=== PATIENT | male | born 1980 | race Caucasian/White ===

== ENCOUNTER 2016-07-12 15:13 | Emergency (ER) | payer BC ==
[~2016-07-12] VITALS: Ht 185.4 cm; Wt 99.2 kg
[~2016-07-12 15:13] MED LIST: CLR10 PO; FEXO3TAB PO; IBUP-103 PO
[2016-07-12 15:50] VITALS: TEMP 36.3; Ht 185.4 cm; Wt 99.2 kg
[2016-07-12] MEDS ORDERED: SODIUM CHLORIDE 0.9% 1000ML 1,000 ML IV STA (16:14)
[2016-07-12] MEDS ORDERED: DiphenhydrAMINE HCL 50 MG/ML VIAL IV STA (16:14)
[2016-07-12] MEDS ORDERED: KETOROLAC TROMETHAMINE 30 MG/ML VIAL IV STA (16:14)
[2016-07-12] MEDS ORDERED: FENTANYL CITRATE INJ 50 MCG/1 ML 2 ML VIAL IV ONE (16:15)
--- NOTE | 2016-07-12 16:50 | DIAGNOSTIC IMAGING REPORT ---
HEAD CT NONCONTRAST CT DOSE: 614.27 mGy.cm HISTORY: Mental status change Evaluate for hemorrhage or pathology TECHNIQUE: Multiaxial CT images of the head were performed without the use of intravenous contrast. Comparison: 03/29/2015 Findings: The paranasal sinuses and mastoid air cells are clear. Stable postoperative changes to the frontal facial region.. The ventricles and sulci are within normal limits. There is no mass, hematoma, midline shift, or acute infarct. Impression: No acute intracranial abnormality. Electronically signed by: Brandt Linares M.D. 07/12/2016 4:49 PM Dictated Date/Time: 07/12/2016 4:48 PM
[2016-07-12 16:59] LABS: BASO % 0.4 %; BASO ABS # 0.02 K/uL (0-0.2); COMPLETE YES; EOS % 8.3 %; HEMATOCRIT 43.8 % (42-52); IG% 0.4 %; LYMPH % 26.8 %; LYMPH ABS # 1.45 K/uL (1.2-3.4); MEAN CELL VOLUME 89.9 fL (80-100); MEAN CORPUSCULAR HGB CONC 35.6 g/dl (32-36); MEAN PLATELET VOLUME 11.6 fL (7.4-10.4); MONO % 7.9 %; NEUT % 56.2 %; PLATELET COUNT 126 K/uL (130-400); RED BLOOD COUNT 4.87 M/uL (4.7-6.1); WHITE BLOOD COUNT 5.41 K/uL (4.8-10.8)
[2016-07-12 17:21] LABS: BUN/CREATININE RATIO 13.9 (10-20); CALCIUM 9.3 mg/dl (8.5-10.1); CREATININE 1.5 mg/dl (0.60-1.40); POTASSIUM 3.6 mmol/L (3.5-5.1)
[2016-07-12] MEDS ORDERED: FENTANYL CITRATE INJ 50 MCG/1 ML 2 ML VIAL IV STA (17:32)
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
[2016-07-12 17:40] VITALS: BP 119/84; PULSE 68; O2SAT 97
== END 2016-07-12 18:00 | disposition home or self-care (01) ==
LOC: C.EDB 15:16 → C.EDC 18:00
DX: E86.0 Dehydration (principal); R51 Headache; I10 Essential (primary) hypertension; I48.91 Unspecified atrial fibrillation; G47.33 Obstructive sleep apnea (adult) (pediatric); K21.9 Gastro-esophageal reflux disease without esophagitis; F32.9 Major depressive disorder, single episode, unspecified; F41.1 Generalized anxiety disorder; F17.200 Nicotine dependence, unspecified, uncomplicated; Z90.5 Acquired absence of kidney; Z85.47 Personal history of malignant neoplasm of testis; Z79.899 Other long term (current) drug therapy; Z88.5 Allergy status to narcotic agent; Z80.9 Family history of malignant neoplasm, unspecified; Z83.79 Family history of other diseases of the digestive system; Z82.49 Family history of ischemic heart disease and other diseases of the circulatory system; Z82.0 Family history of epilepsy and other diseases of the nervous system

== ENCOUNTER 2016-07-19 17:07 | Emergency (ER) | payer BC ==
[~2016-07-19] VITALS: Ht 185.4 cm; Wt 101.2 kg
[~2016-07-19 17:07] MED LIST changes: -FEXO3TAB PO
[2016-07-19 17:10] VITALS: Ht 185.4 cm; Wt 101.2 kg
[2016-07-19 18:09] VITALS: TEMP 36.5
[2016-07-19 19:15] LABS: BASO % 0.4 %; BASO ABS # 0.03 K/uL (0-0.2); COMPLETE YES; HEMATOCRIT 43.5 % (42-52); IG% 0.8 %; LYMPH % 30.3 %; LYMPH ABS # 2.16 K/uL (1.2-3.4); MEAN CELL VOLUME 91.2 fL (80-100); MEAN CORPUSCULAR HEMOGLOBIN 31.9 pg (25-34); MEAN CORPUSCULAR HGB CONC 34.9 g/dl (32-36); MEAN PLATELET VOLUME 11.1 fL (7.4-10.4); MONO % 3.8 %; NEUT % 57.7 %; PLATELET COUNT 148 K/uL (130-400); RED BLOOD COUNT 4.77 M/uL (4.7-6.1); WHITE BLOOD COUNT 7.12 K/uL (4.8-10.8)
[2016-07-19 19:22] VITALS: O2SAT 98
[2016-07-19] MEDS ORDERED: KETOROLAC TROMETHAMINE 30 MG/ML VIAL IV STA (19:28)
[2016-07-19] MEDS ORDERED: PROCHLORPERAZINE 5 MG/ML 2 ML VIAL IV STA (19:28)
[2016-07-19] MEDS ORDERED: DiphenhydrAMINE HCL 50 MG/ML VIAL IV STA (19:28)
[2016-07-19] MEDS ORDERED: SODIUM CHLORIDE 0.9% 1000ML 1,000 ML IV STA (19:28)
--- NOTE | 2016-07-19 19:34 | DIAGNOSTIC IMAGING REPORT ---
CHEST ONE VIEW PORTABLE CLINICAL HISTORY: Severe hypertension. COMPARISON STUDY: Chest radiograph and chest CT March 29, 2015. FINDINGS: Lung volumes are mildly diminished. This is unchanged. There is no pneumothorax or pleural effusion. Cardiac size is normal. Mediastinal contours are stable. There is no evidence of pulmonary edema. There is no consolidation. Minimal right basilar opacity favors atelectasis. IMPRESSION: No acute cardiopulmonary findings. Electronically signed by: Gordo Ramirez M.D. 07/19/2016 7:33 PM Dictated Date/Time: 07/19/2016 7:32 PM
[2016-07-19 19:45] LABS: PROTHROMBIN TIME (PATIENT) 10.7 SECONDS (9.0-12.0)
[2016-07-19 20:07] LABS: ALKALINE PHOSPHATASE 95 U/L (45-117); ALT/SGPT 46 U/L (12-78); BLOOD UREA NITROGEN 14 mg/dl (7-18); BUN/CREATININE RATIO 9.6 (10-20); CALCIUM 8.8 mg/dl (8.5-10.1); CARBON DIOXIDE 28 mmol/L (21-32); CHLORIDE 105 mmol/L (98-107); GLUCOSE 131 mg/dl (70-99); SODIUM 140 mmol/L (136-145)
[2016-07-19 20:33] LABS: AST/SGOT 20 U/L (15-37)
[2016-07-19] MEDS ORDERED: FENTANYL CITRATE INJ 50 MCG/1 ML 2 ML VIAL IV STA ×2 (20:52→23:25)
[2016-07-19 21:52] LABS: URINE APPEARANCE CLEAR (CLEAR); URINE BILIRUBIN NEG (NEG); URINE COLOR YELLOW; URINE NITRITE NEG (NEG); URINE SPECIFIC GRAVITY 1.017 (1.000-1.030); UROBILINOGEN NEG (NEG)
--- NOTE | 2016-07-19 21:53 | DIAGNOSTIC IMAGING REPORT ---
MRI OF THE BRAIN WITHOUT CONTRAST CLINICAL HISTORY: Right frontal headache. COMPARISON STUDY: Head CTs March 29, 2015 and July 12, [address] October 10, 2013. TECHNIQUE: Utilizing a 1.5 Wilda magnet and dedicated coil, multiplanar, multiecho imaging of the brain was performed without IV contrast. FINDINGS: There are no areas of restricted diffusion. No acute intracranial hemorrhage, midline shift or mass effect is present. Ventricular system is normal. Basilar cisterns are patent. There are no extra-axial collections. Flow-voids for the major intracranial vessels are present. No intracranial masses are identified on this examination. Findings consistent with a previous facial internal fixation are noted, better depicted on recent CT. As before, the right frontal sinus is opacified and contains complex material. This represents a chronic finding. There is a possible defect within the right orbital roof with a small amount of material protruding into the superior aspect of the right orbit, slightly displacing the superior rectus muscle. This may be chronic. The defect is suboptimally assessed on this exam but measures approximately 1.8 x 1.5 cm. No intracranial extension is identified on this exam. Minimal signal abnormality within the anterior medial aspects of both frontal lobes is likely posttraumatic and is chronic. IMPRESSION: 1. No acute intracranial findings. 2. Chronic right frontal sinus opacification, similar to previous CT exams. Postsurgical findings consistent with a previous facial reconstruction. 3. Apparent protrusion of right frontal sinus material into the superior aspect of the right orbit with mild mass effect upon the superior rectus muscle. The findings are suboptimally assessed on this exam but raise the possibility of a defect within the right orbital roof. The findings are likely chronic. No intracranial extension identified. Electronically signed by: Gordo Ramirez M.D. 07/19/2016 9:52 PM Dictated Date/Time: 07/19/2016 9:39 PM
[2016-07-19 22:11] LABS: MANUAL MICROSCOPIC REQUIRED? NO; REVIEW REQ? NO
[2016-07-19 23:27] VITALS: BP 136/98; PULSE 97; O2SAT 98
--- NOTE | 2016-07-20 02:54 | EMERGENCY ROOM VISIT NOTE ---
History Report prepared by Perry: Jag Pantoja Under the Supervision of: Dr. Akbar Little M.D. First contact with patient: 18:58 Chief Complaint: HEADACHE Stated Complaint: HIGH BP, BLURRY VISION, PRESSURE IN R SIDE OF HEAD History of Present Illness The patient is a 36 year old male who presents to the Emergency Room with complaints of a frontal, right sided headache that began 7 days ago. The pain radiates back toward the back of his head as well. The patient rates his current pain an 8/10 in severity. The patient was seen in the ED a couple of days ago for the same problem. His headache has persisted since then. He states that it is very intermittent throughout the day. He states that it does not feel like a headache, and that it feels more like a "burning pressure." The patient is also experiencing nausea when the headache is present. Per the , he has been having sporadic "seizure-like" movements that are almost twitch- like. He was alert during this time. This began today. He also turns erythematous to the face when his blood pressure is elevated. He does not have a history of migraines. He says that his mother does have a history of them. The patient has a past medical history of Hypertension. He has had a problem with his blood pressure for about 8 years. He states that they increased his Metoprolol dosage yesterday from 1 50 mg a day to 2 a day (at the same time). He has not missed any of his dosages. They state that his blood pressure has been "out of control." It has gone as high as 157/101. He states that he has right eye blurriness as well. He says that light or sound does not exacerbate his symptoms. He has an additional past medical history of testicular cancer, a unilateral nephrectomy, titanium plates in his head, and sleep apnea. Patient denies LOC, fevers, chills, neck pain/stiffness, thunder clap or sudden onset of headache, carbon monoxide exposure, ear problems/hearing loss, sinus congestion/recent infection, chest pain, breathing difficulties, vomiting, abdominal pain, urinary symptoms, numbness, weakness, lymphadenopathy, rash, or other complaints. Source of History: patient, spouse/significant other Onset: seven days ago Position: head Symptom Intensity: 8/10 Quality: pressure, burning Timing: intermittent Associated Symptoms: + nausea Note: The patient is experiencing facial erythema, right eye blurriness, and an involuntary shake. Review of Systems See HPI for pertinent positives and negatives. A total of ten systems were reviewed and were otherwise negative. Past Medical & Surgical Medical Problems: (1) Ascites (2) Atrial fibrillation (3) Depressive Disorder Nec (4) Esophageal Reflux (5) Generalized Anxiety Dis (6) History of nephrectomy, unilateral (7) Hypertension (8) Hypertension Nos (9) Mononeuritis Leg Nos (10) Obstructive Sleep Apnea (Adult) (Pediatric) (11) Testis cancer (12) Tobacco Use Disorder Surgical Problems: (1) History of nephrectomy (2) Lymphadenectomy (3) Paracentesis Family History Cancer Gallbladder disease Hypertension Lung disease Seizures Social History Smoking Status: Current Every Day Smoker Drug Use: heroin Marital Status: Housing Status: lives with family Occupation Status: employed Current/Historical Medications Scheduled Bupropion (Wellbutrin Sr), 100 MG PO BID Buspirone Hcl (Buspar), 15 MG PO BID Escitalopram Oxalate (Escitalopram Oxalate), 20 MG PO DAILY Loratadine (Claritin), 10 MG PO DAILY Metoprolol Succinate (Metoprolol Succinate ER), 100 MG PO DAILY Omeprazole (Prilosec), 40 MG PO DAILY Tadalafil (Cialis), 5 MG PO DAILY Scheduled PRN Ibuprofen Tab (Advil), 400 MG PO UD PRN for Pain Allergies Coded Allergies: Hydromorphone (Verified Allergy, Intermediate, HIVES, 07/12/16) Physical Exam Vital Signs Date Time Temp Pulse Resp B/P Pulse Ox O2 Delivery O2 Flow Rate FiO2 07/19/16 23:27 97 18 136/98 98 Room Air 07/19/16 22:41 64 18 132/89 95 Room Air 07/19/16 21:38 59 18 126/82 94 Room Air 07/19/16 20:12 61 07/19/16 19:59 60 18 159/104 07/19/16 19:24 79 18 159/96 98 Room Air 07/19/16 19:22 98 Room Air 07/19/16 18:09 36.5 79 18 129/91 96 Room Air 07/19/16 17:10 36.3 71 18 143/93 99 Room Air Physical Exam GENERAL: Awake, alert, well appearing, no distress HENT: Normocephalic, atraumatic. TM's normal. Oropharynx unremarkable. EYES: PERRL. EOMI. Normal conjunctiva. Sclera non-icteric. NECK: Supple. No nuchal rigidity. FROM. No JVD or bruit. RESPIRATORY: CTA CARDIAC: RRR. No murmur. ABDOMEN: Soft, non distended. No tenderness to palpation. No rebound or guarding. No masses. RECTAL: Deferred. MUSCULOSKELETAL: Unremarkable. No edema. No discoloration. Gross motor strength symmetric. NEURO: Cranial nerves 2-12 grossly intact. Normal sensorium. No sensory or motor deficits noted. Speech normal. No pronator drift. Normal rapid alternating movements. Normal heel to perez. SKIN: No rash or jaundice noted. LYMPH: No adenopathy. Medical Decision & Procedures ER Provider Diagnostic Interpretation: Radiology results are stated below per my review and radiologist interpretation: CHEST ONE VIEW PORTABLE CLINICAL HISTORY: Severe hypertension. COMPARISON STUDY: Chest radiograph and chest CT March 29, 2015. FINDINGS: Lung volumes are mildly diminished. This is unchanged. There is no pneumothorax or pleural effusion. Cardiac size is normal. Mediastinal contours are stable. There is no evidence of pulmonary edema. There is no consolidation. Minimal right basilar opacity favors atelectasis. IMPRESSION: No acute cardiopulmonary findings. Electronically signed by: Gordo Ramirez M.D. 07/19/2016 7:33 PM Dictated Date/Time: 07/19/2016 7:32 PM MRI OF THE BRAIN WITHOUT CONTRAST CLINICAL HISTORY: Right frontal headache. COMPARISON STUDY: Head CTs March 29, 2015 and July 12, [address] October 10, 2013. TECHNIQUE: Utilizing a 1.5 Wilda magnet and dedicated coil, multiplanar, multiecho imaging of the brain was performed without IV contrast. FINDINGS: There are no areas of restricted diffusion. No acute intracranial hemorrhage, midline shift or mass effect is present. Ventricular system is normal. Basilar cisterns are patent. There are no extra-axial collections. Flow-voids for the major intracranial vessels are present. No intracranial masses are identified on this examination. Findings consistent with a previous facial internal fixation are noted, better depicted on recent CT. As before, the right frontal sinus is opacified and contains complex material. This represents a chronic finding. There is a possible defect within the right orbital roof with a small amount of material protruding into the superior aspect of the right orbit, slightly displacing the superior rectus muscle. This may be chronic. The defect is suboptimally assessed on this exam but measures approximately 1.8 x 1.5 cm. No intracranial extension is identified on this exam. Minimal signal abnormality within the anterior medial aspects of both frontal lobes is likely posttraumatic and is chronic. IMPRESSION: 1. No acute intracranial findings. 2. Chronic right frontal sinus opacification, similar to previous CT exams. Postsurgical findings consistent with a previous facial reconstruction. 3. Apparent protrusion of right frontal sinus material into the superior aspect of the right orbit with mild mass effect upon the superior rectus muscle. The findings are suboptimally assessed on this exam but raise the possibility of a defect within the right orbital roof. The findings are likely chronic. No intracranial extension identified. Electronically signed by: Gordo Ramirez M.D. 07/19/2016 9:52 PM Dictated Date/Time: 07/19/2016 9:39 PM Laboratory Results 07/19/16 19:05 Red Blood Count 4.77, Mean Corpuscular Volume 91.2, Mean Corpuscular Hemoglobin 31.9, Mean Corpuscular Hemoglobin Concent 34.9, Mean Platelet Volume 11.1, Neutrophils (%) (Auto) 57.7, Lymphocytes (%) (Auto) 30.3, Monocytes (%) (Auto) 3.8, Eosinophils (%) (Auto) 7.0, Basophils (%) (Auto) 0.4, Neutrophils # (Auto) 4.10, Lymphocytes # (Auto) 2.16, Monocytes # (Auto) 0.27, Eosinophils # (Auto) 0.50, Basophils # (Auto) 0.03 07/19/16 19:05 Test 07/19/16 19:05 07/19/16 20:45 White Blood Count 7.12 K/uL (4.8-10.8) Red Blood Count 4.77 M/uL (4.7-6.1) Hemoglobin 15.2 g/dL (14.0-18.0) Hematocrit 43.5 % (42-52) Mean Corpuscular Volume 91.2 fL (80-100) Mean Corpuscular Hemoglobin 31.9 pg (25-34) Mean Corpuscular Hemoglobin Concent 34.9 g/dl (32-36) Platelet Count 148 K/uL (130-400) Mean Platelet Volume 11.1 fL (7.4-10.4) Neutrophils (%) (Auto) 57.7 % Lymphocytes (%) (Auto) 30.3 % Monocytes (%) (Auto) 3.8 % Eosinophils (%) (Auto) 7.0 % Basophils (%) (Auto) 0.4 % Neutrophils # (Auto) 4.10 K/uL (1.4-6.5) Lymphocytes # (Auto) 2.16 K/uL (1.2-3.4) Monocytes # (Auto) 0.27 K/uL (0.11-0.59) Eosinophils # (Auto) 0.50 K/uL (0-0.5) Basophils # (Auto) 0.03 K/uL (0-0.2) RDW Standard Deviation 43.7 fL (36.4-46.3) RDW Coefficient of Variation 13.3 % (11.5-14.5) Immature Granulocyte % (Auto) 0.8 % Immature Granulocyte # (Auto) 0.06 K/uL (0.00-0.02) Prothrombin Time 10.7 SECONDS (9.0-12.0) Prothromb Time International Ratio 1.0 (0.9-1.1) Activated Partial Thromboplast Time 26.1 SECONDS (21.0-31.0) Partial Thromboplastin Ratio 1.0 Anion Gap 7.0 mmol/L (3-11) Est Creatinine Clear Calc Drug Dose 85.1 ml/min Estimated GFR () 68.4 Estimated GFR (Non- 59.0 BUN/Creatinine Ratio 9.6 (10-20) Calcium Level 8.8 mg/dl (8.5-10.1) Total Bilirubin 0.3 mg/dl (0.2-1) Direct Bilirubin < 0.1 mg/dl (0-0.2) Aspartate Amino Transf (AST/SGOT) 20 U/L (15-37) Alanine Aminotransferase (ALT/SGPT) 46 U/L (12-78) Alkaline Phosphatase 95 U/L (45-117) Total Creatine Kinase 64 U/L (39-308) Creatine Kinase MB 1.2 ng/ml (0.5-3.6) Creatine Kinase MB Ratio (0-3.0) Troponin I < 0.015 ng/ml (0-0.045) Total Protein 7.4 gm/dl (6.4-8.2) Albumin 3.9 gm/dl (3.4-5.0) Lipase 310 U/L (73-393) Thyroid Stimulating Hormone (TSH) 3.000 uIu/ml (0.300-4.500) Urine Color YELLOW Urine Appearance CLEAR (CLEAR) Urine pH 6.0 (4.5-7.5) Urine Specific Hiko 1.017 (1.000-1.030) Urine Protein NEG (NEG) Urine Glucose (UA) NEG (NEG) Urine Ketones NEG (NEG) Urine Occult Blood NEG (NEG) Urine Nitrite NEG (NEG) Urine Bilirubin NEG (NEG) Urine Urobilinogen NEG (NEG) Urine Leukocyte Esterase NEG (NEG) Laboratory results reviewed by me Medications Administered Medications (Trade) Dose Ordered Sig/Abigail Route Start Time Stop Time Status Last Admin Dose Admin Sodium Chloride (Nss 1000ml) 1,000 ml @ 999 mls/hr Q1H1M STAT IV 07/19/16 19:28 07/19/16 20:28 DC 07/19/16 19:28 999 MLS/HR Diphenhydramine HCl (Benadryl Inj) 25 mg NOW STAT IV 07/19/16 19:28 07/19/16 19:30 DC 07/19/16 19:55 25 MG Prochlorperazine Edisylate (Compazine Inj) 10 mg NOW STAT IV 07/19/16 19:28 07/19/16 19:30 DC 07/19/16 19:55 10 MG Ketorolac Tromethamine (Toradol Inj) 10 mg NOW STAT IV 07/19/16 19:28 07/19/16 19:30 DC 07/19/16 19:55 10 MG Fentanyl Citrate (Fentanyl Inj) 100 mcg NOW STAT IV 07/19/16 20:52 07/19/16 20:53 DC 07/19/16 21:35 100 MCG Fentanyl Citrate (Fentanyl Inj) 50 mcg NOW STAT IV 07/19/16 23:25 07/19/16 23:26 DC 07/19/16 23:25 50 MCG ECG Indication: other (HTN) Rate (beats per minute): 67 Rhythm: normal sinus Findings: no acute ischemic change, no ectopy ED Course 1857: The patient was evaluated in room A10. A complete history and physical exam was performed. 1928: Toradol Inj 10 mg IV, Compazine Inj 10 mg IV, Benadryl Inj 25 mg IV, Sodium Chloride 1000 ml @ 999 mls/hr IV 2003: I spoke with Dr. Ramirez - Hospitalist, about the patient's metal in his head potentially altering the MRI image. They stated it should be fine. 2051: Fentanyl Citrate 100 mcg IV 2324: Fentanyl Inj 50 mg IV 2344: I reevaluated the patient. Discussed results and discharge instructions: He verbalized understanding and agreement. The patient is ready for discharge. Medical Decision Triage Nursing notes reviewed. The patient's presentation and history were concerning for headache and high blood pressure. Etiologies such as migraine, tumor, hypertensive emergency, labile hypertension, Headache, sinus thrombosis, temporal arteritis, sinusitis, CVA, ICH, SAH, infection, as well as others were entertained. The patient was evaluated. He was nonfocal examination. He had no eye findings. Fundi were normal. The patient's blood pressure was only mildly elevated in the grand scheme of things. He has recently had a his metoprolol increased. His described these jerking movements. The patient was never unresponsive with these. They only lasted a second or so and worse described mostly like a startle or twitch. The patient had a few twitches during the history and physical. They were very brief and lasted about a second. Physical examination was nonfocal and was able to complete all the required testing. His CBC and chemistry panel were unremarkable. ECG and cardiac markers negative. Urinalysis negative. The patient was treated with Compazine , Benadryl and Toradol. On reassessment he was feeling somewhat better but still had the pressure and discomfort. He noted good relief with the fentanyl he received previously. I did review his record in the [facility] and the patient states that he had a prescription for Percocet but was somewhat confused on the time as well as the amount prescribed. He was answering that he had received only 4 or 5 pills worth of medicine however I did discuss the query results showing that he received 30 tablets. He did have some difficulty explaining the difference and lasted as he was just confused about it. Medical record review indicates the patient has had issues with narcotics in the past. I gave my usual and customary discussion regarding this issue. Recent CT imaging was unremarkable. I discussed further imaging with MRI due to his abnormal appearance to his sinus and his right sided headache. He had no meningeal findings. The patient underwent MR imaging and this revealed chronic appearing like changes of the right-sided sinuses. Postsurgical changes noted on the skull. The brain was normal. The patient then desired discharge. He did notice pain was slightly increased after getting much better from the first dose of fentanyl. The patient was given a second 50 g dose. He did well with this. I discussed conservative management as an outpatient. This may be migraine like variant. His blood pressure was elevated but never in the range to consider hypertensive emergency. He the patient was doing well and I discussed referral to neurology. The patient also has the abnormality of the right sinuses and I discussed referral to ENT. If the patient worsens in any way or has recurrent symptoms she can come back to emergency department for evaluation. The patient was encouraged to follow up with his primary physician for blood pressure management. By the evaluation outlined above other emergent etiologies such as those listed in the differential, as well as others, were deemed relatively unlikely. The patient and significant other were informed about the findings as listed above. All questions were answered and they were pleased with the treatment. Return instructions were outlined and the patient was discharged in stable condition. The chart was completed utilizing [employer] Speech voice recognition software. Grammatical errors, random word insertions, pronoun errors, and incomplete sentences are an occasional consequence of this system due to software limitations, ambient noise, and hardware issues. Any formal questions or concerns about the content, text, or information contained within the body of this dictation should be directly addressed to the physician for clarification. Consults Time Called: 1999 Consulting Physician: Dr. Ramirez - Radiology Returned Call: 2003 I spoke with them about the patient's metal in his head potentially altering the MRI image. They stated it should be fine. Impression Primary Impression: Headache Scribe Attestation The scribe's documentation has been prepared under my direction and personally reviewed by me in its entirety. I confirm that the note above accurately reflects all work, treatment, procedures, and medical decision making performed by me. Departure Information Dispostion Home / Self-Care Referrals Sung Parmar (PCP) Marcel Major D.O. Schaefer, Kathleen A., M.D. Forms HOME CARE DOCUMENTATION FORM, IMPORTANT VISIT INFORMATION Patient Instructions My [facility] Additional Instructions HEADACHE INSTRUCTIONS: DO NOT drive, drink alcohol, operate machinery, or perform dangerous activities today. You were given medications in the ER that can affect your ability to safely function or operate a vehicle. Rest today in a quiet, peaceful, dark environment and get a full 8-10 hrs of sleep tonight. Avoid loud noises, smoke/smoking, alcohol, bright lights, stress, or physical exertion today to minimize the chance the headache may return. Continue current medications. Ibuprofen(Motrin, Advil) may be used for fever or pain. Use 600mg every six hours as needed. Take with food. Avoid using more than 2400mg in a 24 hour period. Do not use 2400mg per day for more than three consecutive days without physician direction. Prolonged inappropriate use can lead to stomach upset or ulcers. (AND/OR) Acetaminophen(Tylenol) may be used for fever or pain. Use 1000mg every six hours as needed. Avoid using more than 4000mg in a 24 hour period. Return to the ER for passing out, worsening headache, vision problems, neck stiffness/pain, fevers, vomiting, worsening of your condition, or as needed. Follow up with your primary physician tomorrow for a recheck of your current condition and blood pressure management. Follow-up with neurology, Dr. Anita Patel as discussed. Call the office tomorrow. Follow-up with ENT as discussed. The number is listed below under Dr. Lindsay. Call the office tomorrow.
== END 2016-07-19 23:53 | disposition home or self-care (01) ==
LOC: C.EDB 17:10 → C.EDA 23:53
DX: R51 Headache (principal); I10 Essential (primary) hypertension; I48.91 Unspecified atrial fibrillation; F32.9 Major depressive disorder, single episode, unspecified; K21.9 Gastro-esophageal reflux disease without esophagitis; G47.33 Obstructive sleep apnea (adult) (pediatric); F41.1 Generalized anxiety disorder; F17.200 Nicotine dependence, unspecified, uncomplicated; Z98.890 Other specified postprocedural states; Z79.899 Other long term (current) drug therapy; Z88.5 Allergy status to narcotic agent; Z80.9 Family history of malignant neoplasm, unspecified; Z83.79 Family history of other diseases of the digestive system; Z82.49 Family history of ischemic heart disease and other diseases of the circulatory system; Z82.0 Family history of epilepsy and other diseases of the nervous system

== ENCOUNTER → 2016-07-27 | Outpatient (CLI) | payer BC ==
[~2016-07-27] MED LIST changes: +ACET-1256 PO; +BUPR100T8 PO; +BUSP15TA70 PO; +DOCU100C31 PO; +GADAVIST IV PRN; +LORA24TA7 PO; +LXP/20 PO; +OMEP40CA41 PO; +OXYC-106 PO; +TADA5TAB11 PO; +TPRSR/50 PO
--- NOTE | 2016-07-27 08:12 | DIAGNOSTIC IMAGING REPORT ---
MR ANGIOGRAPHY OF THE [place] NO CONTRAST CLINICAL HISTORY: Subtle onset headaches, history of sinus surgery. Testicular carcinoma. COMPARISON STUDY: None. A 3-D [id number] MR angiographic sequence of the [place] was performed. Both the source and projection images were reviewed. There is no evidence of major intracranial branch occlusion. There is no evidence of intracranial stenosis. There are no lesions suspicious for aneurysm. Inflammatory changes are present within the paranasal sinuses with evidence of maxillary ethmoid and frontal sinus mucosal disease. IMPRESSION: 1. Inflammatory changes within the paranasal sinuses 2. Otherwise unremarkable MR angiography of the [place] Electronically signed by: Mykel Moreno M.D. 07/27/2016 8:11 AM Dictated Date/Time: 07/27/2016 8:08 AM
--- NOTE | 2016-07-27 08:26 | DIAGNOSTIC IMAGING REPORT ---
MRI OF THE BRAIN WITHOUT AND WITH IV CONTRAST CLINICAL HISTORY: Sudden onset headaches. Testicular carcinoma. COMPARISON STUDY: Noncontrast MRI the brain dated 07/19/2016 TECHNIQUE: MRI of the brain was performed from the vertex to the skull base utilizing various T1 and T2 weighted sequences. Following the IV administration of 10 mL of Gadavist contrast, additional enhanced images were obtained. FINDINGS: Sagittal T1, axial diffusion, proton density and T2 weighted axial, coronal FLAIR, and pre and post axial T1-weighted images were acquired. These were supplemented with post gadolinium coronal T1 weighted images. No intra or extra-axial mass lesions are visualized. Axial diffusion-weighted images reveal no evidence of acute or subacute infarction. There is no evidence of ventricular dilatation. Proton density T2-weighted and FLAIR images reveal a focus of increased T2 signal with within the right anterior frontal lobe, consistent with encephalomalacia. There are no abnormal flow voids. There is no evidence of pathologic enhancement. There is circumferential mucosal thickening within the left maxillary sinus. There is chronic opacification of the right frontal sinus. Coronal images suggest a defect within the right orbital roof. There is mild mass effect on the superior rectus muscle. There are postsurgical changes of a prior facial reconstruction. IMPRESSION: 1. No acute intracranial findings. 2. No evidence of metastatic disease 3. Stable right frontal lobe encephalomalacia 4. Persistent sinus disease with chronic opacification of the right frontal sinus. There is a suspected defect involving the right orbital roof with protrusion of right frontal sinus material into the superior aspect of the right orbit. There is mild mass effect on the right superior rectus. Electronically signed by: Mykel Moreno M.D. 07/27/2016 8:25 AM Dictated Date/Time: 07/27/2016 8:18 AM
--- NOTE | 2016-07-27 08:51 | DIAGNOSTIC IMAGING REPORT ---
ORBIT MRI WITH AND WITHOUT CONTRAST CLINICAL HISTORY: Sudden onset headache. History of sinus reconstruction. COMPARISON STUDY: Maxillofacial CT October 10, 2013, head CT March 29, 2015 and MRI of the brain July 19, 2016. TECHNIQUE: Utilizing a 1.5 Wilda magnet and dedicated coil, multiplanar, multiecho imaging of the orbits and the adjacent soft tissues was performed pre and postcontrast ministration. Injection of 10 cc of Gadavist IV was uneventful. The MRI of the brain will be reported separately. FINDINGS: Mild encephalomalacia within the anterior medial bilateral frontal lobes is likely posttraumatic and is chronic. This is unchanged. There is moderate mucosal thickening of the left maxillary sinus and mild mucosal thickening of the right maxillary sinus. There is chronic opacification of the right frontal sinus with nonenhancing T1 hyperintense material. This is unchanged since earlier exams. There is protrusion of this material into the superior aspect of the right orbit. This contacts the right superior rectus muscle. An apparent defect within the roof measures approximately 1.8 cm. By MRI, is difficult to determine whether the bone is intact. At a minimum, the bone is significantly thinned. This could reflect a mucocele. No enhancing component is identified. Postsurgical findings consistent with a previous facial reconstruction are noted. The MRI of the brain will be reported separately. The globes are intact. No additional orbital abnormalities are identified on this examination. IMPRESSION: 1. Chronic opacification of the right frontal sinus which is unchanged since prior exams. The right frontal sinus contains nonenhancing material which could reflect a mucocele. 2. Protrusion of right frontal contents into the superior aspect of the right orbit with a possible defect within the right orbital roof. By MRI, it is difficult to determine the integrity of the bone but the bone is at least thinned. The protruding material contacts the superior rectus muscle. 3. Findings consistent with a previous facial reconstruction. Electronically signed by: Gordo Ramirez M.D. 07/27/2016 8:49 AM Dictated Date/Time: 07/27/2016 8:24 AM
== END | disposition home or self-care (01) ==
LOC: C.MRI 06:37
PROVIDERS: ATTEND Psychiatry & Neurology Neurology
DX: R51 Headache (principal); G93.89 Other specified disorders of brain; J32.9 Chronic sinusitis, unspecified

== ENCOUNTER 2016-12-01 14:45 | Emergency (ER) | payer BC ==
[~2016-12-01] VITALS: Ht 185.4 cm; Wt 98.2 kg
[~2016-12-01 14:45] MED LIST changes: -ACET-1256 PO; -BUPR100T8 PO; -BUSP15TA70 PO; -DOCU100C31 PO; -GADAVIST IV PRN; -LORA24TA7 PO; -LXP/20 PO; -OMEP40CA41 PO; -OXYC-106 PO; -TADA5TAB11 PO; -TPRSR/50 PO
[2016-12-01 14:49] VITALS: TEMP 36.4; Ht 185.4 cm; Wt 98.2 kg
[2016-12-01] MEDS ORDERED: SODIUM CHLORIDE 0.9% 1000ML 2,000 ML IV STA (15:23)
[2016-12-01] MEDS ORDERED: KETOROLAC TROMETHAMINE 30 MG/ML VIAL IV STA (15:23)
[2016-12-01] MEDS ORDERED: ONDANSETRON INJ 2 MG/ML 2 ML VIAL IV STA (15:23)
[2016-12-01 15:31] LABS: BASO % 0.4 %; BASO ABS # 0.03 K/uL (0-0.2); COMPLETE YES; EOS % 4.4 %; IG% 0.3 %; LYMPH ABS # 1.76 K/uL (1.2-3.4); MEAN CORPUSCULAR HEMOGLOBIN 31.3 pg (25-34); MEAN CORPUSCULAR HGB CONC 35.1 g/dl (32-36); MEAN PLATELET VOLUME 10.6 fL (7.4-10.4); MONO % 6.7 %; NEUT % 63.2 %; PLATELET COUNT 181 K/uL (130-400); RED BLOOD COUNT 4.83 M/uL (4.7-6.1); WHITE BLOOD COUNT 7.03 K/uL (4.8-10.8)
[2016-12-01 15:38] LABS: BUN/CREATININE RATIO 7.4 (10-20); CREATININE 1.4 mg/dl (0.60-1.40); POTASSIUM 3.5 mmol/L (3.5-5.1)
[2016-12-01 15:42] LABS: URINE APPEARANCE CLEAR (CLEAR); URINE BILIRUBIN NEG (NEG); URINE COLOR YELLOW; URINE NITRITE NEG (NEG); URINE PH 6.5 (4.5-7.5); URINE SPECIFIC GRAVITY 1.011 (1.000-1.030); UROBILINOGEN NEG (NEG); ZZUR CULT IF INDIC CLEAN CATCH NO
[2016-12-01 15:49] LABS: MANUAL MICROSCOPIC REQUIRED? NO; REVIEW REQ? YES
[2016-12-01] MEDS ORDERED: LORA24TA7 PO (15:53)
[2016-12-01] MEDS ORDERED: ACET-1256 PO (15:53)
[2016-12-01] MEDS ORDERED: OXYC-106 PO (15:54)
[2016-12-01] MEDS ORDERED: DOCU100C31 PO (15:54)
[2016-12-01 15:59] LABS: URINE EPITHELIAL CELL AUTO 0-5 /lpf (0-5)
--- NOTE | 2016-12-01 16:01 | DIAGNOSTIC IMAGING REPORT ---
HEAD CT NONCONTRAST CT DOSE: 614.27 mGy.cm HISTORY: Mental status change DOR[place] TECHNIQUE: Multiaxial CT images of the head were performed without the use of intravenous contrast. Comparison: 07/12/2016 Findings: Pre-existing extensive postoperative change as well as reconstructive surgery to the frontal and right periorbital region as well as nasal bone region. These findings are similar as compared to the prior study. Opacified residual frontal sinuses. Brain itself remains generally unremarkable. There is a small focus of encephalomalacia of the inferior aspects of the frontal lobes. This is unchanged. There are no new or interval findings. There is no evidence for acute intracranial hemorrhage Impression: Chronic and postoperative change. No acute or interval process. Electronically signed by: Brandt Linares M.D. 12/01/2016 3:59 PM Dictated Date/Time: 12/01/2016 3:56 PM
--- NOTE | 2016-12-01 16:16 | DIAGNOSTIC IMAGING REPORT ---
CHEST ONE VIEW PORTABLE HISTORY: double vision and weak COMPARISON: Chest 07/19/2016. FINDINGS: The lungs are clear. Cardiac silhouette is top normal in size. No pleural effusions. No pneumothorax. IMPRESSION: No acute process. Electronically signed by: Reynaldo Trujillo M.D. 12/01/2016 4:15 PM Dictated Date/Time: 12/01/2016 4:13 PM
[2016-12-01] MEDS ORDERED: MoRPHine SULFATE 10 MG/ML CARP/VIAL IV STA (16:23)
[2016-12-01] MEDS ORDERED: BUPR100T8 PO (16:37)
[2016-12-01] MEDS ORDERED: MoRPHine SULFATE 4 MG/ML 1 ML CARP\\VIAL IV STA (17:34)
[2016-12-01] MEDS ORDERED: TPRSR/50 PO (17:37)
[2016-12-01] MEDS ORDERED: BUSP15TA70 PO (17:37)
[2016-12-01] MEDS ORDERED: TADA5TAB11 PO (17:37)
[2016-12-01] MEDS ORDERED: OMEP40CA41 PO (17:37)
[2016-12-01] MEDS ORDERED: LXP/20 PO (17:37)
[2016-12-01 17:55] VITALS: BP 133/81; PULSE 81; O2SAT 99
--- NOTE | 2016-12-01 22:54 | EMERGENCY ROOM VISIT NOTE ---
History Report prepared by Perry: Emilia Rueda Under the Supervision of: Dr. Shun Medley D.O. First contact with patient: 14:53 Chief Complaint: DEHYDRATION Stated Complaint: DEHYDRATION, HEAD PAIN History of Present Illness The patient is a 36 year old male who presents to the Emergency Room with complaints of constant dehydration beginning 2 days ago. The patient states that he has a history of dehydration and was seen here 1 year ago for similar symptoms. He reports that he began feeling symptoms 2 days ago when his head started to hurt and he had blurry vision. He notes that he had a strange feeling in his ear that he has had previously with dehydration. The patient complains of double vision that began today and lasted for about 40 seconds, 10 episodes of diarrhea daily over the last 2 days and bilateral foot pain after working. He denies any cough, runny nose, fevers, one sided weakness, chest pain , shortness of breath, nausea, vomiting, abdominal pain, bloody stool, rash, recent travel, and recent antibiotics. He reports that he had a kidney removed after having cancer that is now resolved and has been told that he should drink 80oz of fluid a day. He notes that over the last 2 days he has had about 90oz fluid each day. The patient notes that he had a sinus cavity replaced 2 months ago and has been doing okay since then. Source of History: patient Onset: 2 days ago Position: other (global) Quality: other (dehydration) Timing: constant Associated Symptoms: + diarrhea, No fevers, No cough, No chest pain, No SOB , No nausea, No vomiting, No abdominal pain, No weakness, No numbness Note: The patient complains of double vision. He denies any runny nose, bloody stool, rash, recent travel, and recent antibiotics Review of Systems See HPI for pertinent positives & negatives. A total of 10 systems reviewed and were otherwise negative. Past Medical & Surgical Medical Problems: (1) Ascites (2) Atrial fibrillation (3) Depressive Disorder Nec (4) Esophageal Reflux (5) Generalized Anxiety Dis (6) History of nephrectomy, unilateral (7) Hypertension (8) Hypertension Nos (9) Mononeuritis Leg Nos (10) Obstructive Sleep Apnea (Adult) (Pediatric) (11) Testis cancer (12) Tobacco Use Disorder Surgical Problems: (1) History of nephrectomy (2) Lymphadenectomy (3) Paracentesis Family History Cancer Gallbladder disease Hypertension Lung disease Seizures Social History Smoking Status: Current Every Day Smoker Drug Use: heroin Marital Status: Housing Status: lives with family Occupation Status: employed Current/Historical Medications Scheduled Bupropion (Wellbutrin Sr), 100 MG PO BID Buspirone Hcl (Buspar), 15 MG PO BID Escitalopram Oxalate (Escitalopram Oxalate), 20 MG PO DAILY Loratadine/Pseudoephedrine (Claritin-D 24 Hour), 1 TAB PO DAILY Metoprolol Succinate (Metoprolol Succinate ER), 100 MG PO DAILY Omeprazole (Prilosec), 40 MG PO DAILY Tadalafil (Cialis), 5 MG PO DAILY Scheduled PRN Acetaminophen (Tylenol), 1,000 MG PO Q6 PRN for Headache or Pain Docusate Sodium (Docusate Sodium), 1 CAP PO BID PRN for Constipation Oxycodone/Acetaminophen 10MG/325MG (Percocet 10MG/325MG), 1 TAB PO Q6 PRN for Pain Allergies Coded Allergies: Hydromorphone (Verified Allergy, Intermediate, HIVES, 12/01/16) Physical Exam Vital Signs Date Time Temp Pulse Resp B/P (MAP) Pulse Ox O2 Delivery O2 Flow Rate FiO2 12/01/16 17:55 81 16 133/81 99 12/01/16 16:11 70 16 123/82 99 Room Air 12/01/16 14:49 36.4 90 16 114/75 98 Room Air Physical Exam GENERAL: sitting up in bed, disheveled, alert, well appearing, well nourished, no distress, non-toxic HEAD: Old facial deformity present EYE EXAM: normal conjunctiva, PERRL and EOM's intact OROPHARYNX: no exudate, no erythema, lips, buccal mucosa, and tongue normal and mucous membranes are moist NECK: supple, no nuchal rigidity, no adenopathy, non-tender LUNGS: Clear to auscultation. Normal chest wall mechanics HEART: no murmurs, S1 normal and S2 normal ABDOMEN: abdomen soft, non-tender, normo-active bowel sounds, no masses, no rebound or guarding. BACK: Back is symmetrical on inspection and there is no deformity, no midline tenderness, no CVA tenderness. SKIN: no rashes and no bruising UPPER EXTREMITIES: upper extremities are grossly normal. LOWER EXTREMITIES: No pitting edema. NEURO EXAM: Normal sensorium, cranial nerves II-XII intact, normal speech, no weakness of arms, no weakness of legs. No drift. Finger to nose intact. Gross sensation intact. Medical Decision & Procedures ER Provider Diagnostic Interpretation: Radiology results as stated below per my review and the radiologist's interpretation: HEAD CT NONCONTRAST Findings: Pre-existing extensive postoperative change as well as reconstructive surgery to the frontal and right periorbital region as well as nasal bone region. These findings are similar as compared to the prior study. Opacified residual frontal sinuses. Brain itself remains generally unremarkable. There is a small focus of encephalomalacia of the inferior aspects of the frontal lobes. This is unchanged. There are no new or interval findings. There is no evidence for acute intracranial hemorrhage Impression: Chronic and postoperative change. No acute or interval process. Electronically signed by: Brandt Linares M.D. 12/01/2016 3:59 PM Dictated Date/Time: 12/01/2016 3:56 PM CHEST ONE VIEW PORTABLE FINDINGS: The lungs are clear. Cardiac silhouette is top normal in size. No pleural effusions. No pneumothorax. IMPRESSION: No acute process. Electronically signed by: Reynaldo Trujillo M.D. 12/01/2016 4:15 PM Dictated Date/Time: 12/01/2016 4:13 PM Laboratory Results 12/01/16 15:00 Red Blood Count 4.83, Mean Corpuscular Volume 89.0, Mean Corpuscular Hemoglobin 31.3, Mean Corpuscular Hemoglobin Concent 35.1, Mean Platelet Volume 10.6, Neutrophils (%) (Auto) 63.2, Lymphocytes (%) (Auto) 25.0, Monocytes (%) (Auto) 6.7, Eosinophils (%) (Auto) 4.4, Basophils (%) (Auto) 0.4, Neutrophils # (Auto) 4.44, Lymphocytes # (Auto) 1.76, Monocytes # (Auto) 0.47, Eosinophils # (Auto) 0.31, Basophils # (Auto) 0.03 12/01/16 15:00 Test 12/01/16 15:00 White Blood Count 7.03 K/uL (4.8-10.8) Red Blood Count 4.83 M/uL (4.7-6.1) Hemoglobin 15.1 g/dL (14.0-18.0) Hematocrit 43.0 % (42-52) Mean Corpuscular Volume 89.0 fL (80-100) Mean Corpuscular Hemoglobin 31.3 pg (25-34) Mean Corpuscular Hemoglobin Concent 35.1 g/dl (32-36) Platelet Count 181 K/uL (130-400) Mean Platelet Volume 10.6 fL (7.4-10.4) Neutrophils (%) (Auto) 63.2 % Lymphocytes (%) (Auto) 25.0 % Monocytes (%) (Auto) 6.7 % Eosinophils (%) (Auto) 4.4 % Basophils (%) (Auto) 0.4 % Neutrophils # (Auto) 4.44 K/uL (1.4-6.5) Lymphocytes # (Auto) 1.76 K/uL (1.2-3.4) Monocytes # (Auto) 0.47 K/uL (0.11-0.59) Eosinophils # (Auto) 0.31 K/uL (0-0.5) Basophils # (Auto) 0.03 K/uL (0-0.2) RDW Standard Deviation 42.0 fL (36.4-46.3) RDW Coefficient of Variation 13.0 % (11.5-14.5) Immature Granulocyte % (Auto) 0.3 % Immature Granulocyte # (Auto) 0.02 K/uL (0.00-0.02) Urine Color YELLOW Urine Appearance CLEAR (CLEAR) Urine pH 6.5 (4.5-7.5) Urine Specific [place] 1.011 (1.000-1.030) Urine Protein NEG (NEG) Urine Glucose (UA) NEG (NEG) Urine Ketones NEG (NEG) Urine Occult Blood NEG (NEG) Urine Nitrite NEG (NEG) Urine Bilirubin NEG (NEG) Urine Urobilinogen NEG (NEG) Urine Leukocyte Esterase NEG (NEG) Urine WBC (Auto) 0 /hpf (0-5) Urine RBC (Auto) 0-4 /hpf (0-4) Urine Hyaline Casts (Auto) 0 /lpf (0-5) Urine Epithelial Cells (Auto) 0-5 /lpf (0-5) Urine Bacteria (Auto) NEG (NEG) Anion Gap 7.0 mmol/L (3-11) Est Creatinine Clear Calc Drug Dose 90.0 ml/min Estimated GFR () 74.4 Estimated GFR (Non- 64.2 BUN/Creatinine Ratio 7.4 (10-20) Calcium Level 10.0 mg/dl (8.5-10.1) Total Bilirubin 0.3 mg/dl (0.2-1) Direct Bilirubin 0.1 mg/dl (0-0.2) Aspartate Amino Transf (AST/SGOT) 22 U/L (15-37) Alanine Aminotransferase (ALT/SGPT) 36 U/L (12-78) Alkaline Phosphatase 68 U/L (45-117) Troponin I < 0.015 ng/ml (0-0.045) Total Protein 7.9 gm/dl (6.4-8.2) Albumin 4.2 gm/dl (3.4-5.0) Lipase 316 U/L (73-393) Laboratory results per my review. Medications Administered Medications (Trade) Dose Ordered Sig/Abigail Route Start Time Stop Time Status Last Admin Dose Admin Sodium Chloride 2,000 ml @ 999 mls/hr Q2H1M STAT IV 12/01/16 15:23 12/01/16 17:23 DC 12/01/16 15:36 999 MLS/HR Ketorolac Tromethamine (Toradol Inj) 30 mg NOW STAT IV 12/01/16 15:23 12/01/16 15:25 DC 12/01/16 15:34 30 MG Morphine Sulfate (MoRPHine SULFATE INJ) 6 mg NOW STAT IV 12/01/16 16:23 12/01/16 16:24 DC 12/01/16 16:30 6 MG Morphine Sulfate (MoRPHine SULFATE INJ) 4 mg NOW STAT IV 12/01/16 17:34 12/01/16 17:35 DC 12/01/16 17:44 4 MG ECG Indication: weakness Rate (beats per minute): 75 Rhythm: sinus rhythm Findings: no ectopy, other (normal axis) ED Course ED COURSE: Vital signs were reviewed and normal The patients medical record was reviewed The above diagnostic studies were performed and reviewed. ED treatments and interventions as stated above. 1454: The patient was evaluated in room B11B. A complete history and physical examination was performed. 1523: Toradol Inj 30mg IV, Zofran Inj 4mg IV, Sodium Chloride 2000 ml @ 999 mls/ hr IV. 1432: I reevaluated the patient. He is feeling better and I updated him. 1623: Morphine Sulfate 6mg IV. 1734: Morphine Sulfate 4mg IV. 174: I reevaluated and updated the patient. 174: Upon reevaluation, the patient is doing well. I discussed my findings with the patient and he understands and agrees with the treatment plan. Based on the patients age, coexisting illnesses, exam and lab findings the decision to treat as an outpatient was made. The patient remained stable while under my care. The patient appeared well at the time of discharge. Medical Decision Differential Diagnosis includes but is not limited to dehydration, stroke, anemia, hypoglycemia, hyponatremia, hypernatremia, urinary tract infection, pneumonia, bronchitis, sepsis, gastroenteritis, additional abdominal pathology, metabolic abnormalities and infections. Blood pressure screening: Patient was found to have normal blood pressure on screening and does not require follow-up. Medication Reconciliation: I attest that I have personally reviewed the patient' s current medication list. Patient is a 36 her old male who presents the ER for weakness associated with diarrhea 2 episodes of double vision and left ear pain. He is completely neurologically intact. Labs including CBC, BMP, LFTs, bilirubin and troponin were negative. Lipase is normal. UA was negative. EKG was unremarkable. Chest x-ray was negative. CT head was negative. He was given fluids and felt slightly better. Patient has no CVA risk factors with his normal exam and negative CT I felt it was reasonable to discharge him and have him follow-up with his PCP. Discussed with Pt concerning signs and symptoms to watch out for. Pt was instructed to follow up with their PCP and discussed with the patient their option to return to the ED at anytime for persistent or worsening symptoms. The appropriate anticipatory guidance and out-patient management, including indications for return to the emergency department, were explained at length to the patient and understood. Impression Primary Impression: Weakness Additional Impression: Diarrhea Scribe Attestation The scribe's documentation has been prepared under my direction and personally reviewed by me in its entirety. I confirm that the note above accurately reflects all work, treatment, procedures, and medical decision making performed by me. Departure Information Dispostion Home / Self-Care Referrals Sung Parmar (PCP) Forms HOME CARE DOCUMENTATION FORM, IMPORTANT VISIT INFORMATION, WORK / SCHOOL INSTRUCTIONS Patient Instructions ED Dizziness [facility], ED Weakness O, My [facility] Additional Instructions Please follow up with your primary care doctor with in the next 24 hours. Any worsening of your symptoms, please return to the ED immediately. This includes fevers greater than 100.4, confusion, weakness or numbness in your arms or legs , chest pain, shortness of breath, passing out or any other concerning signs or symptoms from your standpoint. Problem Qualifiers Additional Impression: Diarrhea Diarrhea type: unspecified type Qualified Codes: R19.7 - Diarrhea, unspecified
== END 2016-12-01 17:56 | disposition home or self-care (01) ==
LOC: C.EDB 14:46
DX: R53.1 Weakness (principal); R19.7 Diarrhea, unspecified; R18.8 Other ascites; I48.91 Unspecified atrial fibrillation; F32.9 Major depressive disorder, single episode, unspecified; K21.9 Gastro-esophageal reflux disease without esophagitis; I10 Essential (primary) hypertension; G47.33 Obstructive sleep apnea (adult) (pediatric); Z82.49 Family history of ischemic heart disease and other diseases of the circulatory system; Z82.0 Family history of epilepsy and other diseases of the nervous system; F17.200 Nicotine dependence, unspecified, uncomplicated; F11.20 Opioid dependence, uncomplicated

== ENCOUNTER 2016-12-04 10:35 | Emergency (ER) | payer BC ==
[~2016-12-04] VITALS: Ht 185.4 cm; Wt 98.2 kg
[~2016-12-04 10:35] MED LIST changes: +ACET-1256 PO; +BUPR100T8 PO; +BUSP15TA70 PO; -CLR10 PO; +DOCU100C31 PO; -IBUP-103 PO; +LORA24TA7 PO; +LXP/20 PO; +OMEP40CA41 PO; +OXYC-106 PO; +TADA5TAB11 PO; +TPRSR/50 PO
[2016-12-04 10:45] VITALS: TEMP 36.5; Ht 185.4 cm; Wt 98.2 kg
[2016-12-04] MEDS ORDERED: SODIUM CHLORIDE 0.9% 1000ML 1,000 ML IV STA (11:21)
[2016-12-04 11:53] LABS: BASO % 0.5 %; BASO ABS # 0.03 K/uL (0-0.2); COMPLETE YES; EOS % 5.7 %; HEMATOCRIT 40.8 % (42-52); IG% 0.4 %; LYMPH % 24.4 %; LYMPH ABS # 1.37 K/uL (1.2-3.4); MEAN CELL VOLUME 88.5 fL (80-100); MEAN CORPUSCULAR HEMOGLOBIN 30.4 pg (25-34); MEAN CORPUSCULAR HGB CONC 34.3 g/dl (32-36); MEAN PLATELET VOLUME 10.3 fL (7.4-10.4); PLATELET COUNT 140 K/uL (130-400); RED BLOOD COUNT 4.61 M/uL (4.7-6.1); WHITE BLOOD COUNT 5.62 K/uL (4.8-10.8)
[2016-12-04] MEDS ORDERED: ACETAMINOPHEN 500 MG TAB PO STA (12:05)
[2016-12-04 12:15] LABS: BUN/CREATININE RATIO 14.3 (10-20); MAGNESIUM 2.3 mg/dl (1.8-2.4); POTASSIUM 4.2 mmol/L (3.5-5.1)
[2016-12-04 12:18] LABS: ALB/GLOB RATIO 1.2 (0.9-2)
[2016-12-04] MEDS ORDERED: MoRPHine SULFATE 4 MG/ML 1 ML CARP\\VIAL IV STA ×2 (12:45→14:19)
[2016-12-04 14:23] VITALS: BP 136/94; PULSE 55; O2SAT 100
--- NOTE | 2016-12-04 14:23 | EMERGENCY ROOM VISIT NOTE ---
History Report prepared by Perry: Jalil Woodward Under the Supervision of: Dr. Ayaka Tomlinson D.O. First contact with patient: 11:00 Chief Complaint: OTHER COMPLAINT Stated Complaint: CRAMPING IN LEGS/HANDS, PAIN ON LEFT SIDE HEAD History of Present Illness The patient is a 36 year old male who presents to the Emergency Room with complaints of intermittent bilateral hand and lower leg cramping beginning yesterday. He also complains of a feeling of "pressure" in the left side of his head. He states that his symptoms feel consistent with dehydration, but states that he has been hydrating well. The patient was seen in the ED three days ago for headache and diarrhea. He had a head CT, chest x-ray and blood work at the time which was all negative. He was told that he was very dehydrated at the time. The patient states that he has been drinking a lot of Gatorade and water over the past several days. He states that he was relatively inactive yesterday. His diarrhea resolved yesterday. The patient also complains of chills. He denies any nausea, or vomiting. He has a history of a nephrectomy due to cancer. The patient denies any recent travel, or known sick contacts. He has a family history of thyroid issues. He also noted that he had his right sided nasal sinuses replaced with a plate in the past. Source of History: patient Onset: Yesterday Position: hand (bilateral), leg (bilateral lower) Quality: other (cramping) Timing: intermittent Associated Symptoms: + chills, + headache ("pressure" in the left side of the head), + diarrhea (resolved), No nausea, No vomiting Review of Systems See HPI for pertinent positives & negatives. A total of 10 systems reviewed and were otherwise negative. Past Medical & Surgical Medical Problems: (1) Ascites (2) Atrial fibrillation (3) Depressive Disorder Nec (4) Esophageal Reflux (5) Generalized Anxiety Dis (6) History of nephrectomy, unilateral (7) Hypertension (8) Hypertension Nos (9) Mononeuritis Leg Nos (10) Obstructive Sleep Apnea (Adult) (Pediatric) (11) Testis cancer (12) Tobacco Use Disorder Surgical Problems: (1) History of nephrectomy (2) Lymphadenectomy (3) Paracentesis Family History Cancer Gallbladder disease Hypertension Lung disease Seizures Social History Smoking Status: Never Smoker Drug Use: heroin Marital Status: Housing Status: lives with family Occupation Status: employed Current/Historical Medications Scheduled Bupropion (Wellbutrin Sr), 100 MG PO BID Buspirone Hcl (Buspar), 15 MG PO BID Escitalopram Oxalate (Escitalopram Oxalate), 20 MG PO DAILY Loratadine/Pseudoephedrine (Claritin-D 24 Hour), 1 TAB PO DAILY Metoprolol Succinate (Metoprolol Succinate ER), 100 MG PO DAILY Omeprazole (Prilosec), 40 MG PO DAILY Tadalafil (Cialis), 5 MG PO DAILY Scheduled PRN Acetaminophen (Tylenol), 1,000 MG PO Q6 PRN for Headache or Pain Docusate Sodium (Docusate Sodium), 1 CAP PO BID PRN for Constipation Oxycodone/Acetaminophen 10MG/325MG (Percocet 10MG/325MG), 1 TAB PO Q6 PRN for Pain Allergies Coded Allergies: Hydromorphone (Verified Allergy, Intermediate, HIVES, 12/01/16) Physical Exam Vital Signs Date Time Temp Pulse Resp B/P (MAP) Pulse Ox O2 Delivery O2 Flow Rate FiO2 12/04/16 14:23 55 18 136/94 100 Room Air 12/04/16 13:14 55 18 155/94 100 Room Air 12/04/16 10:45 36.5 73 18 131/90 97 Room Air Physical Exam GENERAL: alert, well appearing, well nourished, no distress, non-toxic EYE EXAM: normal conjunctiva. OROPHARYNX: no exudate, no erythema, lips, buccal mucosa, and tongue normal and mucous membranes are moist NECK: supple, no nuchal rigidity, no adenopathy, non-tender LUNGS: Clear to auscultation. Normal chest wall mechanics HEART: no murmurs, S1 normal and S2 normal ABDOMEN: abdomen soft, non-tender, normo-active bowel sounds, no masses, no rebound or guarding. BACK: Back is symmetrical on inspection and there is no deformity, no midline tenderness, no CVA tenderness. SKIN: no rashes and no bruising UPPER EXTREMITIES: upper extremities are grossly normal. LOWER EXTREMITIES: No pitting edema. NEURO EXAM: Normal sensorium, cranial nerves II-XII grossly intact, normal speech, no gross weakness of arms, no gross weakness of legs. Medical Decision & Procedures Laboratory Results 12/04/16 11:38 Red Blood Count 4.61, Mean Corpuscular Volume 88.5, Mean Corpuscular Hemoglobin 30.4, Mean Corpuscular Hemoglobin Concent 34.3, Mean Platelet Volume 10.3, Neutrophils (%) (Auto) 63.0, Lymphocytes (%) (Auto) 24.4, Monocytes (%) (Auto) 6.0, Eosinophils (%) (Auto) 5.7, Basophils (%) (Auto) 0.5, Neutrophils # (Auto) 3.54, Lymphocytes # (Auto) 1.37, Monocytes # (Auto) 0.34, Eosinophils # (Auto) 0.32, Basophils # (Auto) 0.03 12/04/16 11:38 Test 12/04/16 11:38 12/04/16 11:45 White Blood Count 5.62 K/uL (4.8-10.8) Red Blood Count 4.61 M/uL (4.7-6.1) Hemoglobin 14.0 g/dL (14.0-18.0) Hematocrit 40.8 % (42-52) Mean Corpuscular Volume 88.5 fL (80-100) Mean Corpuscular Hemoglobin 30.4 pg (25-34) Mean Corpuscular Hemoglobin Concent 34.3 g/dl (32-36) Platelet Count 140 K/uL (130-400) Mean Platelet Volume 10.3 fL (7.4-10.4) Neutrophils (%) (Auto) 63.0 % Lymphocytes (%) (Auto) 24.4 % Monocytes (%) (Auto) 6.0 % Eosinophils (%) (Auto) 5.7 % Basophils (%) (Auto) 0.5 % Neutrophils # (Auto) 3.54 K/uL (1.4-6.5) Lymphocytes # (Auto) 1.37 K/uL (1.2-3.4) Monocytes # (Auto) 0.34 K/uL (0.11-0.59) Eosinophils # (Auto) 0.32 K/uL (0-0.5) Basophils # (Auto) 0.03 K/uL (0-0.2) RDW Standard Deviation 40.7 fL (36.4-46.3) RDW Coefficient of Variation 12.8 % (11.5-14.5) Immature Granulocyte % (Auto) 0.4 % Immature Granulocyte # (Auto) 0.02 K/uL (0.00-0.02) Anion Gap 7.0 mmol/L (3-11) Est Creatinine Clear Calc Drug Dose 126.0 ml/min Estimated GFR () 111.7 Estimated GFR (Non- 96.4 BUN/Creatinine Ratio 14.3 (10-20) Calcium Level 9.0 mg/dl (8.5-10.1) Magnesium Level 2.3 mg/dl (1.8-2.4) Total Bilirubin 0.4 mg/dl (0.2-1) Aspartate Amino Transf (AST/SGOT) 16 U/L (15-37) Alanine Aminotransferase (ALT/SGPT) 34 U/L (12-78) Alkaline Phosphatase 70 U/L (45-117) Ammonia 24.0 umol/L (11-32) Total Protein 6.9 gm/dl (6.4-8.2) Albumin 3.7 gm/dl (3.4-5.0) Globulin 3.2 gm/dl (2.5-4.0) Albumin/Globulin Ratio 1.2 (0.9-2) Lipase 279 U/L (73-393) Lactic Acid Level 0.8 mmol/L (0.4-2.0) Laboratory results per my review. Medications Administered Medications (Trade) Dose Ordered Sig/Abigail Route Start Time Stop Time Status Last Admin Dose Admin Sodium Chloride 1,000 ml @ 999 mls/hr Q1H1M STAT IV 12/04/16 11:21 12/04/16 12:21 DC 12/04/16 12:16 999 MLS/HR Acetaminophen (Tylenol Tab) 1,000 mg NOW STAT PO 12/04/16 12:05 12/04/16 12:06 DC 12/04/16 12:17 1,000 MG Morphine Sulfate (MoRPHine SULFATE INJ) 4 mg NOW STAT IV 12/04/16 12:45 12/04/16 12:46 DC 12/04/16 13:09 4 MG Morphine Sulfate (MoRPHine SULFATE INJ) 4 mg NOW STAT IV 12/04/16 14:19 12/04/16 14:20 DC 12/04/16 14:23 4 MG ED Course 1101: The patient was evaluated in room C2B. A complete history and physical exam was performed. 1121: Ordered Sodium Chloride 1000 ml @ 999 mls/hr IV. 1205: Ordered Tylenol Tab 1000 mg PO. 1245: Ordered Morphine Sulfate 4 mg IV. 1253: I reassessed the patient. He is resting comfortably. I reviewed his EMR laboratory and imaging from last visit.which were consistent with the patient's report. 1419: Ordered Morphine Sulfate 4 mg IV. Upon reevaluation, the patient is feeling better. I discussed the findings and the treatment plan with the patient. He verbalizes agreement and understanding. He will follow up with his sugar controller tomorrow. The patient was discharged home. Medical Decision Differential diagnosis: Etiologies such as metabolic, infection, hypo/hyperglycemia, electrolyte abnormalities, cardiac sources, intracerebral event, toxicologic, neurologic, as well as others were entertained. Patient well-appearing here despite complaints. Patient offered admission for additional evaluation and treatment, he declined, would like to follow-up as scheduled with his family doctor tomorrow, and would like to contact his sugar controller for additional follow-up. Discussed medications, hydration, possible differential diagnosis, symptoms to watch and return for, he verbalized understanding was agreeable with plan. No evidence of bacteremia/ sepsis, no evidence of acute kidney dysfunction. Did not feel patient warranted repeat neuro imaging at this time given dull intermittent headache and recent negative CT. Discussed with them possible differential for headache alone. Doubt meningitis/encephalitis, doubt subarachnoid hemorrhage, no history of trauma. Did not feel patient warranted more puncture at this time, however this was discussed with patient at bedside. Impression Primary Impression: Diarrhea Additional Impressions: Headache Dehydration Scribe Attestation The scribe's documentation has been prepared under my direction and personally reviewed by me in its entirety. I confirm that the note above accurately reflects all work, treatment, procedures, and medical decision making performed by me. Departure Information Dispostion Home / Self-Care Referrals Sung Parmar (PCP) Patient Instructions My [facility] Additional Instructions Please keep her appointment with your family doctor tomorrow. Please follow up with your sugar controller also. Please continue efforts to stay well-hydrated and continue monitoring your stools for any changes. If you have any increased cramping, recurrent headache, develop recurrent diarrhea, noticed black or bloody stools, abdominal pain, vomiting, fevers, you have any other new concerns , please return the emergency room. Problem Qualifiers Primary Impression: Diarrhea Diarrhea type: unspecified type Qualified Codes: R19.7 - Diarrhea, unspecified Additional Impressions: Headache Headache type: unspecified Headache chronicity pattern: unspecified pattern Intractability: not intractable Qualified Codes: R51 - Headache
== END 2016-12-04 14:36 | disposition home or self-care (01) ==
LOC: C.EDB 10:36 → C.EDC 14:36
DX: R19.7 Diarrhea, unspecified (principal); R51 Headache; E86.0 Dehydration; R25.2 Cramp and spasm; R68.83 Chills (without fever); I48.91 Unspecified atrial fibrillation; K21.9 Gastro-esophageal reflux disease without esophagitis; I10 Essential (primary) hypertension; F32.9 Major depressive disorder, single episode, unspecified; G47.30 Sleep apnea, unspecified; Z79.899 Other long term (current) drug therapy

== ENCOUNTER 2024-12-04 11:08 | Inpatient (IN) ==
--- NOTE | 2024-11-20 14:17 | PAT Medication Instructions ---
Medication Instructions Date of Service November 20, 2024 Home Medications Medical Marijuana 1 dose inhalation UD PRN aripiprazole 10 mg tablet 10 mg PO QAM escitalopram oxalate 20 mg tablet 20 mg PO QAM loratadine 10 mg tablet 10 mg PO DAILY PRN meloxicam 15 mg tablet 15 mg PO QAM metoprolol succinate 50 mg tablet,extended release 24 hr 50 mg PO QAM omeprazole 40 mg capsule,delayed release 40 mg PO QAM tadalafil 10 mg tablet 10 mg PO QAM tizanidine 2 mg capsule 2 mg PO HS PRN ASK your surgeon for instructions meloxicam 15 mg tablet 15 mg PO QAM DO NOT take the morning of surgery Medical Marijuana 1 dose inhalation UD PRN loratadine 10 mg tablet 10 mg PO DAILY PRN tadalafil 10 mg tablet 10 mg PO QAM Take morning of surgery With a small sip of water, OTHERWISE NOTHING TO EAT OR DRINK AFTER MIDNIGHT: aripiprazole 10 mg tablet 10 mg PO QAM escitalopram oxalate 20 mg tablet 20 mg PO QAM metoprolol succinate 50 mg tablet,extended release 24 hr 50 mg PO QAM omeprazole 40 mg capsule,delayed release 40 mg PO QAM Take evening before surgery tizanidine 2 mg capsule 2 mg PO HS PRN(if needed) Other Notes If you have any questions please call us at [phone] or [phone] or [phone] or [phone]
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
[2024-12-04] MEDS: LR 15ML/HR IV SCH (11:38)
[2024-12-04] MEDS: ACETAMINOPHEN 500 MG TAB PO SCH (11:39)
[2024-12-04] MEDS: GABAPENTIN 900 MG DOSE PO SCH (11:39)
[2024-12-04] MEDS: CeleBREX 200 MG CAP PO SCH (11:39)
[2024-12-04] MEDS: LR 60ML/HR IV SCH (11:39)
[2024-12-04] MEDS ORDERED: DEXAMETHASONE SOD INJ 4 MG/ML VIAL ONE (11:49)
[2024-12-04] MEDS ORDERED: PROPOFOL IV EMULSION 10 MG/ML 20 ML VIAL IV ONE ×2 (11:49→14:08)
[2024-12-04] MEDS ORDERED: ROCURONIUM BROMIDE 10 MG/ML 5 ML VIAL IV ONE ×2 (11:49→14:06)
[2024-12-04] MEDS ORDERED: LIDOCAINE 2% 2 ML VIAL/AMP(20MG/ML) INFIL ONE (11:49)
[2024-12-04] MEDS ORDERED: ONDANSETRON INJ 2 MG/ML 2 ML VIAL ONE (11:49)
[2024-12-04] MEDS ORDERED: MIDAZOLAM HCL 1 MG/ML 2ML VIAL ONE (11:49)
[2024-12-04] MEDS ORDERED: ATROPINE SULFATE 0.1 MG/ML 10ML SYR IV PRN (12:16)
[2024-12-04] MEDS ORDERED: ONDANSETRON INJ 2 MG/ML 2 ML VIAL IV PRN ×2 (12:16→16:48)
[2024-12-04] MEDS ORDERED: HYDROmorphone INJ 2 MG/ML SYR/VIAL IV PRN (12:16)
[2024-12-04] MEDS ORDERED: PROMETHAZINE HCL 6.25 MG in SODIUM CHLORIDE 0.9% 50 ML IV PRN (12:16)
--- NOTE | 2024-12-04 13:08 | History & Physical Bridge Note ---
Date of Service December 04, 2024 History & Physical Bridge Note I have examined the patient, reviewed the History & Physical and in the interval since the performance of the History & Physical I have noted the following changes of clinical significance: no changes noted
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
[2024-12-04] MEDS: BUPIVACAINE/EPINEPHRINE 0.25% 1:200,000 30 ML VIAL ONE (13:54)
[2024-12-04] MEDS ORDERED: SUGAMMADEX SODIUM 200 MG/2 ML VIAL IV ONE (15:05)
[2024-12-04] MEDS: ceFAZolin 330 MG/ML 1 GM VIAL ONE (15:10)
[2024-12-04] MEDS: FLOSEAL HEMOSTATIC MATRIX 10ML TOP ONE (15:12)
--- NOTE | 2024-12-04 15:16 | Operative Report ---
Post Operative Report Pre & Post Diagnosis Operation Date: 12/04/24 12:55 Pre-Op Diagnosis: #1 lumbar spondylosis with radiculopathy #2 lumbar disc herniation with radiculopathy #3 lumbar spinal stenosis Post-Op Diagnosis: Same I identified the patient and participated in the time-out.: Yes Procedure Operation Date: 12/04/24 12:55 Actual Procedures #1 lumbar decompression with bilateral medial facetectomies and foraminotomies L3-L4 L4 - 5 to include removal of herniated disc fragments #2 posterior spinal fusion L4-5. #3 placement posterior instrumentation L4 connecting to previous instrumentation using Orantes. #4 interbody fusion L4-5 and #5 placed aspire 12 x 26 mm x 2 at L4-5 and #6 placement locally harvested morselized autograft in the posterior gutters. #7 placement infuse collagen sponge, with Koros in the posterior lateral gutters and os design and interbody space strip. #8 application of versa wrap of the exposed dura. Surgeon Maximino Aguilera, Gin Inspector Nina Bee Estimated Blood Loss 300 Findings Consistent with Post-Op Diagnosis Specimens None Indications This is a 44-year-old male who presents for missed diagnosis of failing course of nonoperative care is here for surgical invention. Description of Procedure Patient was met with identified informed consent obtained. Patient was then taken to the operative suite underwent intubation placed in a prone position on the Thomas table atop the Moncho frame. All bony promises well-padded eyes i nspected to ensure no external pressure placed upon them. This point the lumbar spine was prepped and draped no sterile fashion. Sharp dissection with the assistance of Bovie cautery performed down to and exposing the lamina and transverse processes of L3 and instrumentation at L4-L5 bilaterally. Then proceeded with a end caps and rods at L4-5 bilaterally. The pedicle screws were fixed in place and elected to maintain their position. And then performed a complete laminectomy of L3 including bilateral medial facetectomies and foraminotomies as well as excision of herniated free fragment on the left. This was followed by partial laminectomy of L2 with bilateral subarticular decompression to address all stenosis. Pedicle screws then placed in L3 and ludwin attached to L4-L5 and S1 bilaterally. By way of the transforaminal portion of right a discectomy of L4-L5 was performed. The endplates guided to subcortically bone in the 12 x 26 mm spiral cage filled with os design tapped into position. Then proceeded to the left transforaminal region at L4-L5. Again discectomy performed. Endplates guided to subcortically bone. A second 12 x 26 mm spiral cage filled with os design bone graft have the position. The rods were then compressed locked in a final position bilaterally. The transverse processes of L4-L5 burred to subcortical bony bone. Infuse collagen sponge combined with Koros and local autograft placed in the posterior gutters. First wrap placed of exposed dura. 15 round ALYSSA drain inserted. The incision was then closed with 1 Vicryl the fascia 2-0 Vicryl subcutaneously and 4 Monocryl for final skin closure. Steri-Strips sterile dressing placed. Patient waken taken the PACU stable condition. Please note Nina Bee was present out the entire procedure involved the patient positioning complex portion of the surgery and final skin closure. Im ordering 10 grams of Collagen Powder (HCPCS A6010 Primary Dressing) and 10 bordered super absorbent (HCPCS A6196 Secondary Dressing) to treat an incision wound that was caused by a spine procedure. The incision is approximately 2 cm(W) x 2 cm(L) down to the spinal column and epidural space 2 cm (D) in size and is a full thickness wound showing no signs of infection. Collagen comes in 1 gram packets so 10 packets were ordered. Given the size of the wound, with moderate exudate I chose to order a 10 day supply. The patient will be provided instructions for proper application of the collagen wound kit. The patient will be asked to apply the collagen powder daily and then cover it with sterile dressings dispensed. Collagen was selected as I expect the collagen to attract monocytes and fibroblasts, act as a sacrificial substrate for MMPs, and ultimately proved a matrix for tissue and vessel growth. The collagen will act as a primary dressing in this scenario. It is medically necessary for proper healing of these wounds to improve bioavailability and contact with each wound surface, this is also to help prevent infection of wounds and promote healing ultimately leading to a better healing outcome and limit the risk of infection. I attest to the content of the Intraoperative Record and any orders documented therein. Any exceptions are noted below.
--- NOTE | 2024-12-04 15:43 | Fluoroscopy Report ---
FL lumbar spine 2-3V CLINICAL HISTORY: L5-S1 HW REMOVAL L4-S1 DECOMPRESSION AND FUSION COMPARISON STUDY: None FLUOROSCOPY TIME: 14 seconds FLUOROSCOPY IMAGES: 3 EXPOSURE DOSE: 12 mGy FINDINGS: Fluoroscopy was provided for lumbar surgery. IMPRESSION: Intraoperative fluoroscopy. ACT 112: Negative or not required by law. Electronically signed by: eYhuda Varma M.D. 12/04/2024 3:41 PM
--- NOTE | 2024-12-04 16:20 | Anesthesiology Progress Note ---
Date of Service December 04, 2024 Anesthesia Post Procedure Vital Signs Vital Signs: Temp Pulse Pulse Resp BP Pulse Ox O2 Del Method 12/04/24 16:09 36.4 C L 56 L 20 122/80 94 Room Air 12/04/24 16:00 56 L 18 135/81 96 Room Air 12/04/24 15:50 59 L 20 142/91 H 100 Room Air 12/04/24 15:40 55 L 16 139/94 100 Oxymask 12/04/24 15:31 36.0 C L 75 14 142/99 H 93 Oxymask 12/04/24 11:30 36.5 C 68 20 126/80 97 Room Air O2 Flow Rate 12/04/24 16:09 0 12/04/24 16:00 0 12/04/24 15:50 0 12/04/24 15:40 4 12/04/24 15:31 4 12/04/24 11:30 Pain Intensity Back: Pain Intensity: 4 Transfer of Care Handoff Completed per policy Notes Mental Status: alert / awake / arousable and participated in evaluation Patient Amnestic to Procedure: Yes Nausea / Vomiting: adequately controlled Pain: adequately controlled Airway Patency, RR, SpO2: stable & adequate BP & HR: stable & adequate Hydration State: stable & adequate Anesthetic Complications: no major complications apparent and Pt Satisfied with anesthetic care
[2024-12-04] MEDS ORDERED: PROMETHAZINE 12.5 MG/50.5 ML BAG IV PRN (16:48)
[2024-12-04] MEDS ORDERED: KETOROLAC 30 MG/ML VIAL IV PRN (16:48)
[2024-12-04] MEDS ORDERED: LORazepam 0.5 MG TAB PO PRN (16:48)
[2024-12-04] MEDS ORDERED: ONDANSETRON 4 MG OD TAB PO PRN (16:48)
[2024-12-04] MEDS ORDERED: diphenhydrAMINE Capsule 25 MG CAP PO PRN (16:48)
[2024-12-04] MEDS ORDERED: ALUMINUM/MAGNESIUM SUSP 30 ML UDC PO PRN (16:48)
[2024-12-04] MEDS ORDERED: MAGNESIUM HYDROXIDE SUSP 30 ML UDC PO PRN (16:48)
[2024-12-04] MEDS ORDERED: NON-FORMULARY MEDICATION (Medical Marijuana 1 EA) INH PRN (16:48)
[2024-12-04] MEDS ORDERED: ACETAMINOPHEN 500 MG TAB PO PRN (16:48)
[2024-12-04] MEDS ORDERED: DO NOT ADMINISTER FLU VACCINE PRN (16:48)
[2024-12-04] MEDS ORDERED: NALOXONE HCL 0.4 MG/1 ML VIAL/CARP IV PRN (16:48)
[2024-12-04] MEDS ORDERED: ACETAMINOPHEN 1,000 MG/100 ML VIAL IV PRN (16:48)
[2024-12-04] MEDS ORDERED: FAMOTIDINE 20 MG TAB PO PRN (16:48)
[2024-12-04] MEDS ORDERED: METOCLOPRAMIDE HCL INJ 5 MG/ML 2 ML VIAL IV PRN (16:48)
[2024-12-04] MEDS ORDERED: SOD PHOSPHATE/SOD BIPHOSPHATE ENEMA 132 ML BTL PR PRN (16:48)
[2024-12-04] MEDS ORDERED: MoRPHine SULFATE 2 MG/ML CARP IV PRN (16:48)
[2024-12-04] MEDS ORDERED: DO NOT ADMINISTER PNEUMOCOCCAL VACCINE PRN (16:48)
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
[2024-12-04] MEDS: MoRPHine SULFATE 4 MG/ML 1 ML CARP\\VIAL IV PRN (18:36)
[2024-12-04] MEDS: DOCUSATE SODIUM/SENNA 50/8.6MG TAB PO SCH (21:10)
[2024-12-05] MEDS: POLYETHYLENE (MIRALAX) 17 GM PACK PO SCH (05:23)
[2024-12-05 05:59] LABS: Hematocrit (blood only) 34.0 % (42.0-52.0); Hemoglobin 11.8 g/dl (14.0-18.0); Immature Granulocytes # (auto) 0.03 K/uL (0.01-0.20); Immature Granulocytes % (auto) 0.4 %; Mean Corpuscular Hemoglobin 31.6 pg (25.0-34.0); Mean Corpuscular Volume 90.9 fL (80.0-100.0); Platelet Count 118 K/uL (130-400); RDW Standard Deviation 44.9 fL (36.4-46.3); Red Blood Count 3.74 M/uL (4.70-6.10); White Blood Count 7.48 K/ul (4.8-10.8)
[2024-12-05 06:13] LABS: Anion Gap 5.0 (3-11); Blood Urea Nitrogen 10.0 mg/dl (6-23); Calcium 8.6 mg/dl (8.6-10.3); Carbon Dioxide 29.0 mmol/L (21-32); Chloride 103.0 mmol/L (98-107); Creatinine Clr Calc Pharmacy 102.4 ml/min; Glucose 120.0 mg/dl (70-99(Fasting)); Potassium 4.4 mmol/L (3.5-5.1); Sodium 137.0 mmol/L (136-145)
[2024-12-05] MEDS: ESCITALOPRAM OXALATE 20 MG TAB PO SCH (08:47)
[2024-12-05] MEDS: METOPROLOL SUCC 50MG EXT REL TAB PO SCH (08:47)
[2024-12-05] MEDS ORDERED: NON-FORMULARY MEDICATION (Tadalafil [Cialis] 10 mg Tablet) PO SCH (09:00)
--- NOTE | 2024-12-05 11:05 | Orthopedic Progress Note ---
Date of Service December 05, 2024 Assessment & Plan (1) Lumbar disc herniation with radiculopathy: Plan: At this time we will continue physical therapy monitor his ALYSSA operatively discharge home in the next few days. Admission and Anticipated Discharge Date Admission Date: December 04, 2024 Subjective Patient is back pain is controlled left leg pain markedly improved Physical Exam Physical Exam: Patient is good strength testing. Is comfortable. Results & Data Vital Signs (Past 12 Hours) Vital Signs Temp Pulse Resp BP Pulse Ox O2 Del Method 12/05/24 07:13 36.3 C L 76 14 137/87 100 Room Air 12/05/24 03:30 36.5 C 70 18 127/68 94 Room Air 12/04/24 23:08 36.5 C 80 18 125/74 97 Room Air
--- NOTE | 2024-12-05 14:41 | Hospitalist Progress Note ---
Date of Service December 05, 2024 Assessment & Plan (1) Lumbar disc herniation with radiculopathy: (2) Anxiety and depression: (3) History of nephrectomy, unilateral: (4) Hypertension: Plan 44-year-old male who has significant past medical history of HTN, GERD, acquired solitary kidney, depression with anxiety, history of narcotic addiction, history of testicular cancer and medical marijuana use who presents for elective lumbar procedure by Dr. Aguilera. S/p Back Surgery POD#1 L5-S1 HW removal and L4-S1 decompression fusion by Dr. Aguilera EBL 300ml, ALYSSA output 365ml to date pain/wound management per ortho activity and therapy as directed by ortho clarified hydromorphone allergy with pt as it results in facial swelling, he can tolerate morphine and oxy Acute Blood Loss Anemia Pre op hgb 13.8 -> 11.8 Continue to monitor CBC HTN Chronic, stable continue metoprolol Depression/Anxiety Chronic, stable continue abilify, lexapro Hx of testicular ca which resulted in unilateral nephrectomy: stable DVT ppx: TEDs/SCDs as per spine ortho FULL CODE PCP: Mart Barrientos Dispo: per primary Pt was seen and examined in collaboration with Dr. Carson, please see addendum I spent a total of 20 minutes coordinating, documenting and providing care for this patient excluding time spent in the performance of separately billed services or time spent by another provider/QHP. Admission and Anticipated Discharge Date Admission Date: December 04, 2024 Supervising Physician Co-Signing Physician Notes Pt seen and examined by me, care coordinated w/ DEWEY Ruiz, pls refer to her note above for further detail. Pt s/p L5-S1 spinal surgery w/Dr. Aguilera. Currently sitting up in chair in NAD. Overall says he is feeling well. He ambulated in hallway.Pain is controlled. Denies any fever, chills, chest pain, shortness of breath, abd.pain, n/v. He is awake, alert, answers appropriately. Lungs CTAB, heart sounds regular. Abdomen soft, nontender. Pt moves extremities. Hgb decreased, will cont. to monitor. MD Yamileth Subjective Follow up for medical management, s/p back surgery. Patient seen and examined. Resting in bed. Reports pain is well-controlled. Denies numbness and tingling to lower extremities. Urinating without difficulty, + flatus however no BM yet. Denies abdominal pain and nausea. No chest pain or breath. Denies lightheadedness or dizziness. Review of Systems Review of Systems: ROS per HPI, all other systems reviewed and negative Physical Exam Constitutional: WD/WN, vitals as above no acute distress Respiratory: normal respiratory effort, lungs clear to auscultation Cardiovascular: Rate/Rhythm: regular rate and regular rhythm Vessels: normal peripheral pulses Extremities: no edema Gastrointestinal (Abdomen): Percussion/Palpation: abdomen soft; abdomen nontender Musculoskeletal: s/p back surgery, strength strong and equal BLE, drain in place draining serosanguineous drainage Skin: no rashes, warm and dry Neurologic: no focal motor deficits Psychiatric: A+Ox3, euthymic affect Results & Data Results & Data Vital Signs (Past 12 Hours) Vital Signs Temp Pulse Pulse Resp BP BP Pulse Ox 12/05/24 11:25 36.4 C L 63 16 134/88 100 12/05/24 07:13 36.3 C L 76 14 137/87 100 12/05/24 03:30 36.5 C 70 18 127/68 94 O2 Del Method 12/05/24 11:25 Room Air 12/05/24 07:13 Room Air 12/05/24 03:30 Room Air Laboratory Results Short CBC 12/05/24 Range/Units 05:39 WBC 7.48 (4.8-10.8) K/ul Hgb 11.8 L (14.0-18.0) g/dl Hct 34.0 L (42.0-52.0) % Plt Count 118 L (130-400) K/uL BMP 12/05/24 05:39 Sodium 137 Potassium 4.4 Chloride 103 Carbon Dioxide 29 BUN 10 Creatinine 1.01 Glucose 120 H Calcium 8.6 Medications Administered Current Inpatient Medications Acetaminophen (Acetaminophen 500 Mg Tab) 1,000 mg PO Q8H PRN PRN Reason: MILD Pain (1,2,3) & Pre PT Stop: 01/03/25 16:47 Al Hydrox/Mg Hydrox/Simethicone (Aluminum/Magnesium Susp 30 Ml Udc) 30 ml PO Q6H PRN PRN Reason: Dyspepsia Stop: 01/03/25 16:47 Aripiprazole (Aripiprazole 10 Mg Tab) 10 mg PO QAM JOSE Stop: 01/04/25 08:59 Last Admin: 12/05/24 08:47 Dose: 10 mg Bisacodyl (Bisacodyl 10 Mg Supp) 10 mg AR DAILY PRN PRN Reason: Constipation Stop: 01/03/25 16:47 Diphenhydramine HCl (Diphenhydramine Capsule 25 Mg Cap) 25 mg PO Q6H PRN PRN Reason: Allergic Rhinitis/Insomnia Stop: 01/03/25 16:47 Escitalopram Oxalate (Escitalopram Oxalate 20 Mg Tab) 20 mg PO QAM JOSE Stop: 01/04/25 08:59 Last Admin: 12/05/24 08:47 Dose: 20 mg Famotidine (Famotidine 20 Mg Tab) 20 mg PO Q12H PRN PRN Reason: Dyspepsia Stop: 01/03/25 16:47 Hydroxyzine HCl (Hydroxyzine Hcl 25 Mg Tab) 25 mg PO Q8H PRN PRN Reason: Anxiety Stop: 01/03/25 16:47 Acetaminophen (Ofirmev) 1,000 mg in 100 mls @ 400 mls/hr IV Q8H PRN PRN Reason: MILD Pain (1,2,3) & Pre PT Stop: 12/05/24 16:49 Promethazine HCl (Phenergan) 12.5 mg in 50.5 mls @ 202 mls/hr IV Q6H PRN PRN Reason: Nausea And Vomiting Stop: 01/03/25 16:47 Influenza Virus Vaccine Quadrival (Do Not Administer Flu Vaccine) 1 each N/A PRN PRN PRN Reason: Notification Stop: 01/03/25 16:47 Ketorolac Tromethamine (Ketorolac 30 Mg/Ml Vial) 30 mg IV Q6H PRN PRN Reason: Pain Lorazepam (Lorazepam 0.5 Mg Tab) 0.5 mg PO Q8H PRN PRN Reason: Sedation/Anxiety Stop: 01/03/25 16:47 Lorazepam (Lorazepam 2 Mg/1 Ml Vial) 0.5 mg IV Q8H PRN PRN Reason: Sedation/Anxiety Stop: 01/03/25 16:47 Magnesium Hydroxide (Magnesium Hydroxide Susp 30 Ml Udc) 30 ml PO Q24H PRN PRN Reason: Constipation Stop: 01/03/25 16:47 Metoclopramide HCl (Metoclopramide Hcl Inj 5 Mg/Ml 2 Ml Vial) 10 mg IV Q6H PRN PRN Reason: Nausea &/or Vomiting Stop: 01/03/25 16:47 Metoprolol Succinate (Metoprolol Succ 50mg Ext Rel Tab) 50 mg PO QAM [facility] Stop: 01/04/25 08:59 Last Admin: 12/05/24 08:47 Dose: 50 mg Morphine Sulfate (Morphine Sulfate 2 Mg/Ml Carp) 2 mg IV Q3H PRN PRN Reason: MODERATE Pain(4,5,6)/Pre PT Stop: 12/18/24 16:47 Morphine Sulfate (Morphine Sulfate 4 Mg/Ml 1 Ml Carp\Vial) 4 mg IV Q3H PRN PRN Reason: SEVERE Pain (7,8,9,10) Stop: 12/18/24 16:47 Last Admin: 12/04/24 18:36 Dose: 4 mg Naloxone HCl (Naloxone Hcl 0.4 Mg/1 Ml Vial/Carp) 0.1 mg IV Q5M PRN PRN Reason: Oversedation/Resp depression Stop: 01/03/25 16:47 Ondansetron HCl (Ondansetron Inj 2 Mg/Ml 2 Ml Vial) 4 mg IV Q6H PRN PRN Reason: Nausea &/or Vomiting Stop: 01/03/25 16:47 Ondansetron HCl (Ondansetron 4 Mg Od Tab) 4 mg PO Q6H PRN PRN Reason: Nausea Stop: 01/03/25 16:47 Oxycodone HCl (Oxycodone Hcl Ir 5 Mg Tab (Immediate Release)) 5 - 10 mg PO Q4H PRN PRN Reason: MOD/SEV Pain & Pre PT Stop: 12/18/24 16:47 Last Admin: 12/05/24 08:47 Dose: 10 mg Pantoprazole Sodium (Pantoprazole 40 Mg Tab) [facility] [place] Stop: 01/04/25 08:59 Last Admin: 12/05/24 08:47 Dose: 40 mg Pneumococcal Polyvalent Vaccine (Do Not Administer Pneumococcal Vaccine) 1 each N/A PRN PRN PRN Reason: Notification Stop: 01/03/25 16:47 Polyethylene Glycol (Polyethylene (Miralax) 17 Gm Pack) 17 gm PO Q6 [facility] Stop: 01/04/25 05:59 Last Admin: 12/05/24 11:58 Dose: 17 gm Senna/Docusate Sodium (Docusate Sodium/Senna 50/8.6mg Tab) 2 tab PO HS JOSE Stop: 01/03/25 20:59 Last Admin: 12/04/24 21:10 Dose: 2 tab Sodium Biphosphate/Sodium Phosphate (Sod Phosphate/Sod Biphosphate Enema 132 Ml Btl) 132 ml AR ONE PRN PRN Reason: Constipation Stop: 01/03/25 16:47 Tizanidine HCl (Tizanidine Hcl 4 Mg Tablet) 2 mg PO HS PRN PRN Reason: Pain Stop: 01/03/25 16:47 Tramadol HCl (Tramadol Hcl 50 Mg Tablet) 50 - 100 mg PO Q4H PRN PRN Reason: MOD/SEV Pain & Pre PT Stop: 01/03/25 16:47
[2024-12-06 07:38] LABS: Hematocrit (blood only) 33.8 % (42.0-52.0); Hemoglobin 11.7 g/dl (14.0-18.0); Mean Corpuscular Hemoglobin 32.1 pg (25.0-34.0); Mean Corpuscular Volume 92.6 fL (80.0-100.0); Platelet Count 105 K/uL (130-400); RDW Standard Deviation 45.8 fL (36.4-46.3); Red Blood Count 3.65 M/uL (4.70-6.10); White Blood Count 5.12 K/ul (4.8-10.8)
[2024-12-06 07:40] VITALS: BP 125/80; PULSE 75; RESP 18; TEMP 98.2; O2SAT 99
[2024-12-06 08:00] LABS: Anion Gap 2.0 (3-11); Blood Urea Nitrogen 10.0 mg/dl (6-23); Calcium 8.9 mg/dl (8.6-10.3); Carbon Dioxide 34.0 mmol/L (21-32); Chloride 102.0 mmol/L (98-107); Creatinine Clr Calc Pharmacy 95.8 ml/min; Glucose 88.0 mg/dl (70-99(Fasting)); Magnesium 1.8 mg/dl (1.7-2.4); Potassium 4.7 mmol/L (3.5-5.1); Sodium 138.0 mmol/L (136-145)
--- NOTE | 2024-12-06 08:10 | Discharge Summary ---
Date of Service December 06, 2024 Admission HPI Per Admitting Provider This is a 44-year-old male who presents with chronic persistent back and leg pain after failing course of nonoperative care is here for surgical invention. Principal Diagnosis Lumbar disc herniation with radiculopathy Discharge Data Allergies Allergy/AdvReac Type Severity Reaction Status Date / Time hydromorphone Allergy Intermediate facial Verified 12/04/24 17:27 swelling Consultations 12/04/24 16:48 Consult Hospitalist Routine Procedures Performed Operation Date: 12/04/24 12:55 Actual Procedures p L4-S1 Decompression and Fusion(Not Applicable) - Maximino Aguilera DO s L5-S1 Hardware Removal, (Not Applicable) - Maximino Aguilera DO Ordered Studies 12/04/24 12:55 FL lumbar spine 2-3V Routine Hospital Course (1) Lumbar disc herniation with radiculopathy: Patient underwent lumbar decompression fusion tolerated so was taken to orthopedic for postoperative. Postop he progressed appropriately. Marked improvement of his leg pain. Ambulating well. ALYSSA drain decreasing. Excellent strength testing. Subsidy discharged home. Discharge orders and instructions found in the chart for further review. Total Time Total Time Spent Total Time Spent (In Minutes): 20 minutes Discharge Plan Discharge Items Patient Disposition: Home - Self-Care Reason For Visit: Lumbar Disc Herniation with Radiculopathy, Retroli Discharge Diagnosis: Lumbar disc herniation with radiculopathy Activity: As commented below Non-emergency contact: Primary Care Provider Call non-emergency contact if: you have any medication questions Follow-up/Referrals: Mart Barrientos MD [Primary Care Provider] - Diet: Regular Addtl Attending Provider Instructions: ACTIVITY RECOMMENDATIONS: SELF CARE INSTRUCTIONS AFTER THORACIC/LUMBAR FUSIONS 1. You may walk to your tolerance. It is good exercise for your legs and back. Expect some back and intermittent leg aches and pains. 2. You may perform "counter-top" level activities (make a sandwich, johann with a project, etc.). 3. No bending or lifting of more than 10 pounds or back twisting of any nature (roll like a log when turning in bed). 4. You may ride in a car for 20-30 minutes at a time. No driving until after your first visit with your doctor. 5. Frequent changes of position and restricting sitting to 30 minutes at a time will help limit the amount of back spasms and stiffness you may experience. 6. You may discontinue the use of ambulatory aids (cane, crutches, etc.) once your strength and confidence allow. 7. You may combination machine tender the shower and let water strike your incision when you arrive home at least once daily. Do not take a tub bath, sit in a hot tub or go into a swimming pool until after your first recheck in the office. 8. You may resume previous diet. SPECIAL CARE INSTRUCTIONS: VERY IMPORTANT TO READ AND REVIEW A. Your surgical incision has been closed with a cosmetic suture under the skin that will dissolve in about 6 weeks. In 14 days, you can use a pair of clean scissors and cut the suture that is left outside of the skin at the ends of your incision. 1. The small skin tapes can be removed 7 days after surgery if they have not fallen off by that point. 2. You may keep the wound open to air as much as possible to promote healing after post-op day number 5 unless told otherwise by your doctor. 3. If you think the wound looks like it is becoming infected (redness or worsening drainage) and/or you are experiencing fever, chill or worsening back pain and muscle spasms, contact the office so that we may evaluate you as soon as possible. B. Complications are uncommon, but please contact us if you have any signs or symptoms of: 1. wound infection (fever higher than 102.5 degrees F, redness, separation of wound, drainage, or increasing pain from the incision) 2. blood clots in legs (pain, swelling, redness and warmth in legs) 3. urinary tract infection (fever higher than 102.5 degrees F, burning upon urination or increased frequency of urination) 4. nerve problems (inability to walk on your toes or heels, numbness, loss of bowel or bladder control) 5. any other symptoms that concern you C. Please call the office at if you have any concerns or questions about your operation or recovery. D. No smoking! Smoking drastically decreases the chance of a solid fusion. E. Do not take any anti-inflammatory medications (Indocin, Advil, Motrin, Aspirin, Naprosyn, etc.) as these may inhibit the chance of a solid fusion. Tylenol is okay to take for pain. MANAGING PAIN AFTER SPINAL SURGERY 1. Narcotic medication is intended for short-term use and will be provided for surgical pain. Surgical pain usually lasts for a period of 4-6 weeks. Narcotic medication includes Percocet, Vicodin, Darvocet, Tylenol #3 or Lortab. 2. Longer-term pain is more appropriately treated with non-narcotic medication such as Tylenol ES. 3. Muscle spasm is not appropriately treated with narcotics. Muscle relaxers such as Soma, Flexeril or Skelaxin can be used along with Tylenol ES. 4. Remember that we all live with some "aches and pains". This is not unusual or uncommon after an injury or as we get older. a. Back pain is expected and may include muscle spasms for 4 to 6 weeks after surgery. The pain should gradually improve. If the pain worsens for no apparent reason, please contact the office. b. Intermittent leg pain may also be experienced and should not be concerned about unless it worsens for no apparent reason. If so, please contact the office. 5. We will provide appropriate medication within the normal guidelines of their prescribed use. We will also be very cautious and aware of potential abuse and extended duration of patients' medication needs. a. Pain medications are for your comfort and to assist with sleep and rest so that the tissue can heal. They are not provided in order to return to normal activity and should not be used through the day. To do so or worsening pain at night can result from ongoing tissue damage and development of tolerance to the prescribed medicine. 6. Please allow 2-3 days to process refills. Prescriptions will not be mailed but must be picked up at the office. FOLLOW UP VISIT: Keep your scheduled follow-up appointment. Any questions, please call the office at . Pending Studies at Discharge: No Stand-Alone Forms: [employer], Smoking Cessation Medications and DC Order Prescriptions: New tramadol 50 mg tablet 50 mg PO Q6H PRN (Reason: pain, moderate) Qty: 30 0RF oxycodone 5 mg tablet 5 mg PO Q6H PRN (Reason: pain) Qty: 30 0RF Continued metoprolol succinate 50 mg Tablet Extended Release 24 Hr 50 mg PO QAM meloxicam 15 mg Tablet 15 mg PO QAM omeprazole 40 mg Capsule,Delayed Release(Dr/Ec) 40 mg PO QAM loratadine 10 mg Tablet 10 mg PO DAILY PRN (Reason: .) escitalopram oxalate [Lexapro] 20 mg Tablet 20 mg PO QAM aripiprazole [Abilify] 10 mg Tablet 10 mg PO QAM tadalafil [Cialis] 10 mg Tablet 10 mg PO QAM tizanidine [Zanaflex] 2 mg Capsule 2 mg PO HS PRN (Reason: Pain) Medical Marijuana 1 dose inhalation UD PRN (Reason: Pain) Discharge Orders: Discharge Order (Routine); Ordered 12/06/24 Ordered By: Maximino Aguilera Admission Data Admit Date/Time: 12/04/24 15:19 Attending Provider: Maximino Aguilera Admit Provider: Maximino Aguilera Primary Care Provider: Mart Barrientos I. Other Providers: Veronica Bhatt
--- NOTE | 2024-12-06 11:40 | Hospitalist Progress Note ---
Date of Service December 06, 2024 Assessment & Plan (1) Lumbar disc herniation with radiculopathy: (2) Anxiety and depression: (3) History of nephrectomy, unilateral: (4) Hypertension: Plan 44-year-old male who has significant past medical history of HTN, GERD, acquired solitary kidney, depression with anxiety, history of narcotic addiction, history of testicular cancer and medical marijuana use who presents for elective lumbar procedure by Dr. Aguilera. S/p Back Surgery S/p L5-S1 HW removal and L4-S1 decompression fusion by Dr. Aguilera pain/wound management per ortho activity and therapy as directed by ortho clarified hydromorphone allergy with pt as it results in facial swelling, he can tolerate morphine and oxy Acute Blood Loss Anemia Pre op hgb 13.8 -> 11.8 Current Hgb 11.7, stable Continue to monitor CBC HTN Chronic, stable continue metoprolol Depression/Anxiety Chronic, stable continue abilify, lexapro Hx of testicular ca which resulted in unilateral nephrectomy: stable DVT ppx: TEDs/SCDs as per spine ortho FULL CODE PCP: Mart Barrientos Dispo: per primary Admission and Anticipated Discharge Date Admission Date: December 04, 2024 Subjective Pt seen in follow up for medical management, s/p back surgery. Pt is feeling well, denies any fever, chills, chest pain, shortness of breath, abd.pain, n/v He is ambulating, pt's mother present in the room Review of Systems Review of Systems: All systems reviewed & are unremarkable except as noted in Subjective Physical Exam Physical Exam: Constitutional: WD/WN, vitals as a esther no acute dis tress Respiratory: normal respiratory effort, lungs johnathon ar to auscultation Cardiovascular: Rate/Rhythm: regul ar rate and regula r rhythm Vessels: normal peripheral pulses Extremiti es: no edema Gastrointestinal ( Abdomen): Percussion/Palpati on: abdomen soft; abdomen nontender Musculoskeletal: s/p back surgery, ambulating, movin g extremities Skin: no rashes, warm an d dry Neurologic: awake, alert, answ ers appropriately, speech fluent, mo ves extremities Psychiatric: A+Ox3, euthymic af fect Results & Data Results & Data Vital Signs (Past 12 Hours) Vital Signs Temp Pulse Resp BP Pulse Ox O2 Del Method 07/04/25 07:39 36.8 C 75 18 125/80 99 Room Air Laboratory Results 12/06/24 Range/Units 06:53 WBC 5.12 (4.8-10.8) K/ul RBC 3.65 L (4.70-6.10) M/uL Hgb 11.7 L (14.0-18.0) g/dl Hct 33.8 L (42.0-52.0) % MCV 92.6 (80.0-100.0) fL MCH 32.1 (25.0-34.0) pg MCHC 34.6 (32.0-36.0) g/dL RDW Std Deviation 45.8 (36.4-46.3) fL RDW Coeff of Amador 13.5 (11.5-14.5) % Plt Count 105 L (130-400) K/uL MPV 11.3 (9.4-12.4) fL Sodium 138 (136-145) mmol/L Potassium 4.7 (3.5-5.1) mmol/L Chloride 102 (98-107) mmol/L Carbon Dioxide 34 H (21-32) mmol/L Anion Gap 2 L (3-11) BUN 10 (6-23) mg/dl Creatinine 1.08 (0.6-1.4) mg/dl Est Cr Clr Drug Dosing 95.8 ml/min eGFR 86.78 BUN/Creatinine Ratio 9.3 L (10-20) Glucose 88 (70-99(Fasting)) mg/dl Calcium 8.9 (8.6-10.3) mg/dl Phosphorus 3.1 (2.5-4.9) mg/dl Magnesium 1.8 (1.7-2.4) mg/dl
== END 2024-12-06 11:12 | disposition home or self-care (01) | DRG 402 ==
LOC: ASU 11:08 → 3E 15:19